=== PATIENT | female | born 1965 | race Two or more races ===

== ENCOUNTER 2024-09-12 15:00 | Outpatient (RCR) | payer MEDICAID, SELFPAY ==
--- NOTE | 2024-08-30 13:49 | PT.OIERPT ---
PT OP Initial Eval Patient Information Outpatient Physical Therapy Treatment Date: 08/30/24 Visit Reasons: Right hand pain Medical Diagnosis: M79.641 M18.11 Treatment Dx #1: R thumb pain Start of Care: 08/30/24 Date of Onset: 1 yr ago Smoking Status Smoking Status: Never smoker Initial Assessment Subjective: Pt is 59 yr old female who c/o R thumb pain x1 yr. She has received 2 injections which helped for a while and she uses a thumb splint brace at night which helps a little. She reports difficulty with gripping, grasping objects, carrying and moving the thumb. 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 Short Term and Expenditure Requisition Clerk Goals 1. Ind with HEP 2. Improved business intelligence director strength on R to 65 lbs 3. Pt will business intelligence director 3 lb objects and not drop for 2 minutes Treatment Plan ?1. Manual therapy ? 2. Therex ? 3. Modalities as indicated, moist heat, ice, estim Frequency and Duration: 1-2x a week for 3-4 visits. If improving continue to 12, if not reassess Certification Dates: 08/30/24 to 11/26/24 Procedure Charges OP PT Eval Mod Complex 30 minutes: Yes
--- NOTE | 2024-09-12 15:44 | PT.ODAYNRPT ---
PT Outpatient Daily Note OP Daily Note Outpatient Physical Therapy Treatment Date: 09/12/24 Visit Reasons: Right hand pain Subjective: Pt c/o R thumb pain. Objective: Please see flow sheet for ther ex list. Assessment: Pt demonstrates poor activity tolerance due to aggravating symptoms and pain response with light exercises assigned. Plan: Assess response to treatment. Length of Time (minutes) of Treatment: 30 Minutes Procedure Charges Therapeutic Exercise 30 minutes: Yes
== END 2024-09-13 23:59 | disposition home or self-care (01) ==
LOC: CPTX 15:00
DX: M79.644 Pain in right finger(s) (principal); M79.641 Pain in right hand; M18.11 Unilateral primary osteoarthritis of first carpometacarpal joint, right hand
CPT/HCPCS: 97110; 97162

== ENCOUNTER 2024-09-13 13:01 | Outpatient (AMB) | payer MEDICAID, SELFPAY ==
[2024-09-13 13:31] VITALS: BP 125/70; PULSE 69; RESP 19; TEMP 36; O2SAT 97; BMI 39.7
--- NOTE | 2024-09-13 13:31 | PD.ORTHCLVIS ---
Vital signs 09/13/24 13:31 Height 1.57 m Height Method Stated Weight 98.685 kg Weight Measurement Method Standing Scale BMI 39.7 BP 125/70 Blood Pressure Source Automatic Cuff Blood Pressure Location Left Upper Arm Position Sitting Respiration 19 Pulse 69 Pulse Source Monitor Temp 96.8 F Temp Source Temporal Artery Scan Pulse Oximetry (%) 97 Oxygen Delivery Method Room Air Med/Allergies Allergies & Medications Allergies NKA* Allergy (Uncoded 09/13/24 13:31) Medication Reconciliation Aspirin Ec * (ECOTRIN *) 81 mg PO QDAY ##0 01/07/16 [History Confirmed 09/13/24] Hydrocodone/Acetaminophen * (NORCO 10/325 *) 1 tab PO Q4H PRN #0 tabs 01/07/16 [History Confirmed 09/13/24] Levothyroxine * (SYNTHROID *) 100 mcg PO ACBR #0 tabs 01/07/16 [History Confirmed 09/13/24] Oxybutynin Chloride XL * (DITROPAN XL *) 10 mg PO BID ##0 01/07/16 [History Confirmed 09/13/24] benazepril 20 mg tablet (Lotensin) 20 mg PO QDAY #0 tabs 01/07/16 [History Confirmed 09/13/24] meloxicam 7.5 mg tablet 7.5 mg PO QDAY #45 tabs 09/13/24 [Rx] Exam Exam Breathing is nonlabored. Patient has a normal mood and affect. Bilateral extremities were evaluated and demonstrates sensation intact to light touch. Palpable pedal pulses are present. No significant edema is present. Bilateral hips were examined. The patient has no pain with log roll of the hips. Internal rotation to 30 degrees and external rotation to 30 degrees is painless. Negative FADIR. Left knee was examined today. The left knee is in reasonable alignment. Range of motion from 0-120 degrees. Knee is stable to varus and valgus as well as AP translation with <5mm. Patient has a negative McMurrays. There is no pain with patellofemoral compression and no crepitus noted. The knee is nontender to palpation. The right knee was also examined. The right knee is in varus alignment. Range of motion from 0-115 degrees. Knee is stable to varus and valgus as well as AP translation with <5mm. Patient has a negative McMurrays. There is no pain with patellofemoral compression and no crepitus noted. The knee is tender to palpation medially. Assessment and Plan Problem List (1) Arthritis of knee, right: Status: Acute Plan Patient is a 59-year-old female with right knee pain and right knee arthritis. I would like to get weightbearing x-rays to better evaluate the severity of the arthritis. I will start her on an anti-inflammatory for now. We can give her an injection should she need one. Office Procedures GNS Level of Care Nursing/Assessment Patient Status: Established Patient Nursing Assessment/Reassesment: Medication Reconciliation, Update PMH in EMR and Vital Signs Coordination of Care: Complex Care and Chronic Disease 1-5, Education Complex Pt/Fam, Consent,records obtained, informed consent, Results/Orders obtained and Staff clarify orders Established Patient Charge Established Patient Point Assignment: 95 Established Patient Point Charge: Level 3 (80-115) MA Intake Visit Data Collection New Patient or Established: New Patient (never been to [facility]) Reason for Visit:: KNEE PAIN Seen by Clinical Staff ONLY (RN/MA): No Verbal consent obtained for Telemed visit?: No Gas System Operator Required: No PCP or OBGYN visit in last 3 months: Yes Hx Now: No Do You Feel Safe at Home: Yes Authorities Contacted: N/A Questionairres Past Medical History Past Medical History Have you ever been diagnosed with any of the following: Subjective Immunization / Flu Flu Vaccine in the Last 12 Months: Yes Flu Vaccine Exclusion Criteria: Already Received History of Present Illness Chief complaint: Bilateral knee pain Luz is a pleasant 59-year-old female with right greater than left knee pain. The knee pain has been ongoing for more than a year. She is only tried [id number] ibuprofen. She is not any injections or physical therapy. The pain is on the medial aspect and has been increasing Review of Systems Review of Systems: All systems negative unless otherwise noted in HPI.
== END 2024-09-13 14:05 | disposition home or self-care (01) ==
PROVIDERS: PCP Physician Assistant; Referring Provider Physician Assistant; Supervising Provider Orthopaedic Surgery Adult Reconstructive Orthopaedic Surgery; Visit Provider Orthopaedic Surgery Adult Reconstructive Orthopaedic Surgery
DX: M17.11 Unilateral primary osteoarthritis, right knee (principal); M25.561 Pain in right knee
CPT/HCPCS: 99213; G0463

== ENCOUNTER → 2024-09-15 | Outpatient (CLI) | payer MEDICAID, SELFPAY ==
--- NOTE | 2024-09-15 10:07 | XR_ITS ---
Examination: Right knee 4 views TECHNIQUE: Standing AP oblique lateral axial right knee 4 views Exam date 9: September 15, 2024 1019 hours INDICATIONS: Right knee pain and stiffness beginning 2 years ago. FINDINGS: Moderate osteopenia Advanced narrowing medial joint space Significant osteoarthritis patellofemoral and lateral joint spaces No patellar dislocation IMPRESSION: Moderate to advanced tricompartment osteoarthritis
== END | disposition home or self-care (01) ==
LOC: CDIM 09:58
PROVIDERS: PCP Family Medicine; Referring Provider Orthopaedic Surgery Adult Reconstructive Orthopaedic Surgery; Visit Provider Orthopaedic Surgery Adult Reconstructive Orthopaedic Surgery
DX: M17.11 Unilateral primary osteoarthritis, right knee (principal)
CPT/HCPCS: 73564

== ENCOUNTER 2024-09-30 08:54 | Outpatient (AMB) | payer MEDICAID, SELFPAY ==
--- NOTE | 2024-09-30 09:32 | ORTHONT_ITS ---
Vital signs 09/30/24 09:33 Height 1.57 m Height Method Stated Weight 97.749 kg Weight Measurement Method Standing Scale BMI 39.6 BP 152/82 H Blood Pressure Source Automatic Cuff Blood Pressure Location Left Upper Arm Position Sitting Respiration 19 Pulse 65 Pulse Source Monitor Temp 96.1 F L Temp Source Temporal Artery Scan Pulse Oximetry (%) 94 L Oxygen Delivery Method Room Air Med/Allergies Allergies & Medications Allergies NKA* Allergy (Uncoded 09/30/24 09:33) Medication Reconciliation Aspirin Ec * (ECOTRIN *) 81 mg PO QDAY ##0 01/07/16 [History Confirmed 09/30/24] Hydrocodone/Acetaminophen * (NORCO 10/325 *) 1 tab PO Q4H PRN #0 tabs 01/07/16 [History Confirmed 09/30/24] Levothyroxine * (SYNTHROID *) 100 mcg PO ACBR #0 tabs 01/07/16 [History Confirmed 09/30/24] Oxybutynin Chloride XL * (DITROPAN XL *) 10 mg PO BID ##0 01/07/16 [History Confirmed 09/30/24] benazepril 20 mg tablet (Lotensin) 20 mg PO QDAY #0 tabs 01/07/16 [History Confirmed 09/30/24] meloxicam 7.5 mg tablet 7.5 mg PO QDAY #45 tabs 09/13/24 [Rx Confirmed 09/30/24] Exam Exam Breathing is nonlabored. Patient has a normal mood and affect. Bilateral extremities were evaluated and demonstrates sensation intact to light touch. Palpable pedal pulses are present. No significant edema is present. Bilateral hips were examined. The patient has no pain with log roll of the hips. Internal rotation to 30 degrees and external rotation to 30 degrees is painless. Negative FADIR. Left knee was examined today. The left knee is in reasonable alignment. Range of motion from 0-120 degrees. Knee is stable to varus and valgus as well as AP translation with <5mm. Patient has a negative McMurrays. There is no pain with patellofemoral compression and no crepitus noted. The knee is nontender to palpation. The right knee was also examined. The right knee is in varus alignment. Range of motion from 0-115 degrees. Knee is stable to varus and valgus as well as AP translation with <5mm. Patient has a negative McMurrays. There is no pain with patellofemoral compression and no crepitus noted. The knee is tender to palpation medially. X-rays demonstrate complete joint space obliteration medially with sclerosis and osteophytes. This is of the right knee from [place] [facility] Assessment and Plan Problem List (1) Arthritis of knee, right: Status: Acute Plan Patient is a 59-year-old female with right knee pain and right knee arthritis. She has significant arthritis medially. She would like a coritsone injection medially. Recommend knee cortisone injection as patient would like to proceed with conse rvative treatment at this time. The risks and benefits of the procedure were reviewed with the patient and patient gave verbal consent to continue with the procedure. Procedure: performed by Dr. Diaz Using sterile technique the Right knee was thoroughly prepped with alcohol, and approximately 1 cc of Kenalog 40 mg/mL and 4 cc of 1% lidocaine was injected without resistance into the medial tibial femoral joint space. The patient tolerated the procedure. Office Procedures GNS Level of Care Nursing/Assessment Patient Status: Established Patient Nursing Assessment/Reassesment: Medication Reconciliation, Update PMH in EMR and Vital Signs Coordination of Care: Complex Care and Chronic Disease 1-5, Education Complex Pt/Fam, Consent,records obtained, informed consent, Results/Orders obtained and Staff clarify orders Established Patient Charge Established Patient Point Assignment: 95 Established Patient Point Charge: EP Level 3 (80-115) Surgical Proc/IM SQ injection Major Surgical Procedure: Yes (KNEE INJECTION ) Medication Given Medication Given Medication Given: Yes Documented Dose Given: 4 Route: Infiitration Medication Given Medication Given Medication Given: Yes Documented Dose Given: 1 Route: Infiitration Office Meds Xylocaine 10 mg/mL (1 %) injection solution Performing Provider: South Diaz MD Performing Location: [facility] Administered by: South Diaz MD on 09/30/24 10:14 Dose Route Admin Location Dispensed Lot Number Expiration Date [facility] Centrifuge Separator Tender 20 mL Infiltration 20 mL [id number] [facility] triamcinolone acetonide 40 mg/mL suspension for injection Performing Provider: Sotuh Diaz MD Performing Location: [facility] Administered by: South Diaz MD on 09/30/24 10:14 Dose Route Admin Location Dispensed Lot Number Expiration Date [facility] Centrifuge Separator Tender 40 mg intra-articular KNEE INJECTION 1 mL [id number] 01/12/26 3406-2661-20 TEVA PARENTERAL MA Intake Visit Data Collection New Patient or Established: Established Patient (seen at [facility] within 3 years) Reason for Visit:: XRAY RESULTS Seen by Clinical Staff ONLY (RN/MA): No Manager Event Required: No PCP or OBGYN visit in last 3 months: Yes Hx Now: No Do You Feel Safe at Home: Yes Authorities Contacted: N/A Questionairres Past Medical History Past Medical History Have you ever been diagnosed with any of the following: Subjective Visit Visit for: follow up visit and x-rays (RESULTS) Immunization / Flu Flu Vaccine in the Last 12 Months: No Flu Vaccine Exclusion Criteria: No Exclusion Criteria History of Present Illness Chief complaint: Bilateral knee pain Luz is a pleasant 59-year-old female with right greater than left knee pain. The knee pain has been ongoing for more than a year. Pain is on the medial aspect of her knee. She would like an injection today. She reports some relief with the meloxicam Pain Pain level (0-10): 2 Pain duration: ON AND OFF Pain location: inside (medial) Pain quality: dull and aching Associated signs & symptoms: none Ambulatory data Ambulatory device: none Treatments Improvement with previous injections: No Improvement with PT: No Improvement with NSAIDS: no Review of Systems Review of Systems: All systems negative unless otherwise noted in HPI.
[2024-09-30 09:33] VITALS: BP 152/82; PULSE 65; RESP 19; TEMP 35.6; O2SAT 94; BMI 39.6
== END 2024-09-30 09:56 | disposition home or self-care (01) ==
LOC: HODSRG 08:54
PROVIDERS: PCP Physician Assistant; Referring Provider Physician Assistant; Supervising Provider Orthopaedic Surgery Adult Reconstructive Orthopaedic Surgery; Visit Provider Orthopaedic Surgery Adult Reconstructive Orthopaedic Surgery
DX: M17.11 Unilateral primary osteoarthritis, right knee (principal); M25.561 Pain in right knee
CPT/HCPCS: 20610; 99213; J3301; J3490; G0463

== ENCOUNTER 2024-10-12 09:30 | Outpatient (RCR) | payer MEDICAID, SELFPAY ==
--- NOTE | 2024-09-15 09:07 | PT.ODAYNRPT ---
PT Outpatient Daily Note OP Daily Note Outpatient Physical Therapy Treatment Date: 09/15/24 Visit Reasons: Right hand pain Subjective: Pt reports hand feels the same, still painful and sore. Objective: Please see flow sheet for ther ex list. Assessment: Added wrist 4 way, pt completed with minimal fatigue but no pain to report. Plan: Continue with POC. Length of Time (minutes) of Treatment: 30 Minutes Procedure Charges Therapeutic Exercise 30 minutes: Yes
--- NOTE | 2024-09-22 09:33 | PT.ODAYNRPT ---
PT Outpatient Daily Note OP Daily Note Outpatient Physical Therapy Treatment Date: 09/22/24 Visit Reasons: Right hand pain Subjective: Pt reports continued pain in R thumb, no changes at this time. Objective: Please see flow sheet for ther ex list. Assessment: Intervention progression delayed due to pt pain response. Plan: Continue with POC. Length of Time (minutes) of Treatment: 30 Minutes Procedure Charges Therapeutic Exercise 30 minutes: Yes
--- NOTE | 2024-09-28 09:32 | PT.ODAYNRPT ---
PT Outpatient Daily Note OP Daily Note Outpatient Physical Therapy Treatment Date: 09/28/24 Visit Reasons: Right hand pain Subjective: Pt reports hand has been feeling more sore these past few days. Objective: Please see flow sheet for ther ex list. Assessment: Pt continues to report pain, intervention progression slow. Plan: Continue with POC. Length of Time (minutes) of Treatment: 30 Minutes Procedure Charges Therapeutic Exercise 30 minutes: Yes
--- NOTE | 2024-10-05 10:27 | PT.ODAYNRPT ---
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
--- NOTE | 2024-10-07 13:27 | PT.ODAYNRPT ---
PT Outpatient Daily Note OP Daily Note Outpatient Physical Therapy Treatment Date: 10/07/24 Visit Reasons: Right hand pain Subjective: Pt reports R hand and thumb continue to be sore and painful. Objective: Please see flow sheet for ther ex list. Assessment: Delay in intervention progression due to pt pain response. Plan: Continue with POc. Length of Time (minutes) of Treatment: 30 Minutes Procedure Charges Therapeutic Exercise 30 minutes: Yes
== END 2024-10-14 23:59 | disposition home or self-care (01) ==
LOC: CPTX 09:30
DX: M79.641 Pain in right hand (principal); M18.11 Unilateral primary osteoarthritis of first carpometacarpal joint, right hand
CPT/HCPCS: 97110

== ENCOUNTER 2024-10-19 08:53 | Outpatient (RCR) | payer MEDICAID, SELFPAY ==
--- NOTE | 2024-10-19 10:03 | PT.ODS1RPT ---
PT OP Progress/Discharge Note Date of Service: 10/19/24 Progress Note/DC Note Progress Note/Discharge Note: DC Note Patient Information Visit Reasons: Rt hand pain Service Continue Service or Discharge: Discharge Discharge Date: 10/19/24 Status Subjective: Pain comes and goes, good days bad days Objective: Exercise Instructor strength: R: 55 lbs, L: 65 lbs Thumb AROM: Ext: 55 deg Flexion: 25 deg Assessment: Pt has attended / Rx visits with limited progress with therapy goals due to continued pain around 1st CMC consistent with OA. Pt scored higher on windows systems administrator strength 70 lbs last visit when she had less pain. Today she scored 55 lbs. On a good day pt has met therapy goals to windows systems administrator 3lb objects and not drop them and windows systems administrator strength to 65 lbs on R but pain returns. Plan: D/C with HEP. Procedure Charges Therapeutic Exercise 30 minutes: Yes
== END 2024-11-11 23:59 | disposition home or self-care (01) ==
LOC: CPTX 08:53
DX: M79.641 Pain in right hand (principal); M18.11 Unilateral primary osteoarthritis of first carpometacarpal joint, right hand
CPT/HCPCS: 97110

== ENCOUNTER 2024-12-29 08:28 | Outpatient (AMB) | payer MEDICAID, SELFPAY ==
[2024-12-29 09:10] VITALS: BP 136/79; PULSE 65; RESP 17; TEMP 36.1; O2SAT 97; BMI 36.8
--- NOTE | 2024-12-29 09:10 | PD.ORTHCLVIS ---
Vital signs 12/29/24 09:10 Height 1.57 m Height Method Stated Weight 90.775 kg Weight Measurement Method Standing Scale BMI 36.8 BP 136/79 H Blood Pressure Source Automatic Cuff Blood Pressure Location Left Upper Arm Position Sitting Respiration 17 Pulse 65 Pulse Source Monitor Temp 96.9 F Temp Source Temporal Artery Scan Pulse Oximetry (%) 97 Oxygen Delivery Method Room Air Med/Allergies Allergies & Medications Allergies NKA* Allergy (Uncoded 12/29/24 09:11) Medication Reconciliation Aspirin Ec * (ECOTRIN *) 81 mg PO QDAY ##0 01/07/16 [History Confirmed 12/29/24] Hydrocodone/Acetaminophen * (NORCO 10/325 *) 1 tab PO Q4H PRN #0 tabs 01/07/16 [History Confirmed 12/29/24] Levothyroxine * (SYNTHROID *) 100 mcg PO ACBR #0 tabs 01/07/16 [History Confirmed 12/29/24] Oxybutynin Chloride XL * (DITROPAN XL *) 10 mg PO BID ##0 01/07/16 [History Confirmed 12/29/24] benazepril 20 mg tablet (Lotensin) 20 mg PO QDAY #0 tabs 01/07/16 [History Confirmed 12/29/24] meloxicam 7.5 mg tablet 7.5 mg PO QDAY #45 tabs 09/13/24 [Rx Confirmed 12/29/24] Exam Exam Breathing is nonlabored. Patient has a normal mood and affect. Bilateral extremities were evaluated and demonstrates sensation intact to light touch. Palpable pedal pulses are present. No significant edema is present. Bilateral hips were examined. The patient has no pain with log roll of the hips. Internal rotation to 30 degrees and external rotation to 30 degrees is painless. Negative FADIR. Left knee was examined today. The left knee is in reasonable alignment. Range of motion from 0-120 degrees. Knee is stable to varus and valgus as well as AP translation with <5mm. Patient has a negative McMurrays. There is no pain with patellofemoral compression and no crepitus noted. The knee is nontender to palpation. The right knee was also examined. The right knee is in varus alignment. Range of motion from 0-115 degrees. Knee is stable to varus and valgus as well as AP translation with <5mm. Patient has a negative McMurrays. There is no pain with patellofemoral compression and no crepitus noted. The knee is tender to palpation medially. X-rays demonstrate complete joint space obliteration medially with sclerosis and osteophytes. This is of the right knee from [place] [facility] Assessment and Plan Problem List (1) Arthritis of knee, right: Status: Acute Plan Patient is a 59-year-old female with right knee pain and right knee arthritis. She has significant arthritis medially. She would like a coritsone injection medially. The last injection has worked for several months Recommend knee cortisone injection as patient would like to proceed with conservative treatment at this time. The risks and benefits of the procedure were reviewed with the patient and patient gave verbal consent to continue with the procedure. Procedure: performed by Dr. Diaz Using sterile technique the Right knee was thoroughly prepped with alcohol, and approximately 1 cc of Kenalog 40 mg/mL and 4 cc of 1% lidocaine was injected without resistance into the medial tibial femoral joint space. The patient tolerated the procedure. Office Procedures GNS Level of Care Nursing/Assessment Patient Status: Established Patient Nursing Assessment/Reassesment: Medication Reconciliation, Update PMH in EMR and Vital Signs Coordination of Care: Complex Care and Chronic Disease 1-5, Education Complex Pt/Fam, Consent,records obtained, informed consent, Results/Orders obtained and Staff clarify orders Established Patient Charge Established Patient Point Assignment: 95 Established Patient Point Charge: EP Level 3 (80-115) Surgical Proc/IM SQ injection Major Surgical Procedure: Yes (KNEE INJECTION ) Medication Given Medication Given Medication Given: Yes Documented Dose Given: 4 Route: Infiitration Medication Given Medication Given Medication Given: Yes Documented Dose Given: 1 Route: Infiitration Office Meds Xylocaine 10 mg/mL (1 %) injection solution Performing Provider: South Diaz MD Performing Location: [facility] Administered by: oSuth Diaz MD on 12/29/24 09:36 Dose Route Admin Location Dispensed Lot Number Expiration Date [facility] Core Composer Feeder 20 mL Infiltration 20 mL [id number] [employer] triamcinolone acetonide 40 mg/mL suspension for injection Performing Provider: South Diaz MD Performing Location: [facility] Administered by: South Diaz MD on 12/29/24 09:36 Dose Route Admin Location Dispensed Lot Number Expiration Date [facility] Core Composer Feeder 40 mg intra-articular KNEE 1 mL [id number] 06/14/26 9309-3146-53 TEVA PARENTERAL MA Intake Visit Data Collection New Patient or Established: Established Patient (seen at [facility] within 3 years) Reason for Visit:: FU RT KNEE INJECTION Seen by Clinical Staff ONLY (RN/MA): No Fireman Helper Required: No PCP or OBGYN visit in last 3 months: Yes Hx Now: No Do You Feel Safe at Home: Yes Authorities Contacted: N/A Questionairres Past Medical History Past Medical History Have you ever been diagnosed with any of the following: Respiratory Problems Smoking: No Smoking Cessation Counseling: No Smoking Exposure: No Tobacco Use: No Subjective Visit Visit for: follow up visit and knee (RIGHT KNEE ) Immunization / Flu Flu Vaccine in the Last 12 Months: No Flu Vaccine Exclusion Criteria: Refused by Patient History of Present Illness Chief complaint: Bilateral knee pain Luz is a pleasant 59-year-old female with right greater than left knee pain. The knee pain has been ongoing for more than a year. Pain is on the medial aspect of her knee. She would like an injection today. She reports some relief with the meloxicam. Personal History Red flag PMH: none Pain Pain level (0-10): 7 Pain duration: ON AND OFF Pain location: anterior Pain quality: sharp Pain timing: night and increases with activity Associated signs & symptoms: stiffness Ambulatory data Ambulatory device: none Walking distance (minutes): 10 Treatments Number of previous injections: 1 Improvement with previous injections: Yes Number of Physical Therapy sessions: 0 Improvement with PT: No Improvement with NSAIDS: n/a Review of Systems Review of Systems: All systems negative unless otherwise noted in HPI.
== END 2024-12-29 09:56 | disposition home or self-care (01) ==
LOC: HODSRG 08:28
PROVIDERS: PCP Family Medicine; Referring Provider Family Medicine; Supervising Provider Orthopaedic Surgery Adult Reconstructive Orthopaedic Surgery; Visit Provider Orthopaedic Surgery Adult Reconstructive Orthopaedic Surgery
DX: M17.11 Unilateral primary osteoarthritis, right knee (principal); M25.561 Pain in right knee
CPT/HCPCS: 20610; 99213; J3301; J3490; G0463

== ENCOUNTER 2025-05-04 08:33 | Outpatient (AMB) | payer MEDICAID, SELFPAY ==
[2025-05-04 08:44] VITALS: BP 147/82; PULSE 58; RESP 18; TEMP 36.3; O2SAT 96; BMI 32.0
--- NOTE | 2025-05-04 08:44 | ORTHONT_ITS ---
Vital signs 05/04/25 08:44 Height 1.57 m Height Method Measured Weight 79.01 kg Weight Measurement Method Standing Scale BMI 32.0 BP 147/82 H Blood Pressure Source Automatic Cuff Blood Pressure Location Left Upper Arm Position Sitting Respiration 18 Pulse 58 L Pulse Source Monitor Temp 97.3 F Temp Source Temporal Artery Scan Pulse Oximetry (%) 96 Oxygen Delivery Method Room Air Med/Allergies Allergies & Medications Allergies NKA* Allergy (Uncoded 05/04/25 08:45) Medication Reconciliation Aspirin Ec * (ECOTRIN *) 81 mg PO QDAY ##0 01/07/16 [History Confirmed 05/04/25] Hydrocodone/Acetaminophen * (NORCO 10/325 *) 1 tab PO Q4H PRN #0 tabs 01/07/16 [History Confirmed 05/04/25] Levothyroxine * (SYNTHROID *) 100 mcg PO ACBR #0 tabs 01/07/16 [History Confirmed 05/04/25] Oxybutynin Chloride XL * (DITROPAN XL *) 10 mg PO BID ##0 01/07/16 [History Confirmed 05/04/25] benazepril 20 mg tablet (Lotensin) 20 mg PO QDAY #0 tabs 01/07/16 [History Confirmed 05/04/25] meloxicam 7.5 mg tablet 7.5 mg PO QDAY #45 tabs 09/13/24 [Rx Confirmed 05/04/25] Exam Exam Breathing is nonlabored. Patient has a normal mood and affect. Bilateral extremities were evaluated and demonstrates sensation intact to light touch. Palpable pedal pulses are present. No significant edema is present. Bilateral hips were examined. The patient has no pain with log roll of the hips. Internal rotation to 30 degrees and external rotation to 30 degrees is painless. Negative FADIR. Left knee was examined today. The left knee is in reasonable alignment. Range of motion from 0-120 degrees. Knee is stable to varus and valgus as well as AP translation with <5mm. Patient has a negative Mc[place]. There is no pain with patellofemoral compression and no crepitus noted. The knee is nontender to palpation. The right knee was also examined. The right knee is in varus alignment. Range of motion from 0-115 degrees. Knee is stable to varus and valgus as well as AP translation with <5mm. Patient has a negative [place]. There is no pain with patellofemoral compression and no crepitus noted. The knee is tender to palpation medially. X-rays demonstrate complete joint space obliteration medially with sclerosis and osteophytes. This is of the right knee from [facility] Assessment and Plan Problem List (1) Arthritis of knee, right: Status: Acute Plan Patient is a 59-year-old female with right knee pain and right knee arthritis. She has significant arthritis medially. She would like a coritsone injection medially. The last injection has worked for several months Recommend knee cortisone injection as patient would like to proceed with conservative treatment at this time. The risks and benefits of the procedure were reviewed with the patient and patient gave verbal consent to continue with the procedure. Procedure: performed by Dr. Diaz Using sterile technique the Right knee was thoroughly prepped with alcohol, and approximately 1 cc of Depo-Medrol 80mg/mL and 4 cc of 0.2% ropivacaine was injected without resistance into the medial tibial femoral joint space. The patient tolerated the procedure. Office Procedures GNS Level of Care Nursing/Assessment Patient Status: Established Patient Nursing Assessment/Reassesment: Medication Reconciliation, Orthostatic Vitals, Update PMH in EMR and Vital Signs Coordination of Care: Complex Care and Chronic Disease 1-5, Education Complex Pt/Fam, Consent,records obtained, informed consent, Lab and Imaging orders, Results/Orders obtained and Staff clarify orders Established Patient Charge Established Patient Point Assignment: 120 Established Patient Point Charge: EP Level 3 (80-115) Surgical Proc/IM SQ injection Major Surgical Procedure: Yes (KNEE INJECTION) Medication Given Medication Given Medication Given: Yes Documented Dose Given: 1 Route: Infiitration Medication Given Medication Given Medication Given: Yes Documented Dose Given: 4 Route: Infiitration Office Meds methylprednisolone acetate 80 mg/mL suspension for injection Performing Provider: South Diaz MD Performing Location: [facility] Administered by: South Diaz MD on 05/04/25 09:16 Dose Route Admin Location Dispensed Lot Number Expiration Date [facility] Boarding Room Fixer 80 mg intra-articular KNEE 1 mL [id number] 02/11/27 [address]-0 A [facility] ropivacaine (PF) 2 mg/mL (0.2 %) injection solution Performing Provider: South Diaz MD Performing Location: [facility] Administered by: South Diaz MD on 05/04/25 09:16 Dose Route Admin Location Dispensed Lot Number Expiration Date [facility] Boarding Room Fixer 20 mL Infiltration KNEE 20 mL [id number] 08/13/26 36998-733-36 [facility] Intake Visit Data Collection New Patient or Established: Established Patient (seen at [facility] within 3 years) Reason for Visit:: FU RT KNEE INJECTION Seen by Clinical Staff ONLY (RN/MA): No Lamination Technician Required: No PCP or OBGYN visit in last 3 months: Yes Hx Now: No Do You Feel Safe at Home: Yes Authorities Contacted: N/A Questionairres Past Medical History Past Medical History Have you ever been diagnosed with any of the following: Respiratory Problems Smoking: No Smoking Cessation Counseling: No Smoking Exposure: No Tobacco Use: No Subjective Visit Visit for: follow up visit and knee (RIGHT KNEE ) Immunization / Flu Flu Vaccine in the Last 12 Months: No Flu Vaccine Exclusion Criteria: Refused by Patient History of Present Illness Chief complaint: Bilateral knee pain Luz is a pleasant 59-year-old female with right greater than left knee pain. The knee pain has been ongoing for more than a year. Pain is on the medial aspect of her knee. She would like an injection today. She reports some relief with the meloxicam. The last injection lasted for 3 months Personal History Red flag PMH: none Pain Pain level (0-10): 7 Pain duration: ON AND OFF Pain location: anterior Pain quality: sharp Pain timing: night and increases with activity Associated signs & symptoms: stiffness Ambulatory data Ambulatory device: none Walking distance (minutes): 10 Treatments Number of previous injections: 2 Improvement with previous injections: Yes Number of Physical Therapy sessions: 0 Improvement with PT: No Improvement with NSAIDS: n/a Review of Systems Review of Systems: All systems negative unless otherwise noted in HPI.
== END 2025-05-04 08:59 | disposition home or self-care (01) ==
LOC: HODSRG 08:33
PROVIDERS: Supervising Provider Orthopaedic Surgery Adult Reconstructive Orthopaedic Surgery; Visit Provider Orthopaedic Surgery Adult Reconstructive Orthopaedic Surgery
DX: M17.11 Unilateral primary osteoarthritis, right knee (principal); M25.561 Pain in right knee; M25.562 Pain in left knee
CPT/HCPCS: 20610; 99213; J1010; J2795; G0463

== ENCOUNTER 2025-05-07 10:57 | Observation (INO) | payer MEDICAID, SELFPAY ==
[2025-05-07 10:58] VITALS: BMI 32.0
[2025-05-07 11:30] VITALS: BP 144/82; PULSE 89; RESP 19; TEMP 37.7; O2SAT 97
--- NOTE | 2025-05-07 11:56 | XR_ITS ---
Examination: CT abdomen with intravenous contrast CT pelvis with intravenous contrast 2-D coronal reconstructions 2-D sagittal reconstructions Date and time of exam: May 07, 2025, 1434 hrs. Indications:. No abdominal pain beginning last week. CTDI: vol (mGy) 10. DLP: (mGycm) 517. Technique: Multiple axial sections of the abdomen and pelvis have been obtained. 64 slice high-resolution scanner used. 3 mm axial sections have been obtained, post intravenous injection 60 cc [id number]-[id number]. 2-D sagittal, coronal reconstructions obtained. Low dose protocols were performed. One or more of the following dose reduction techniques were used; automated exposure control, adjustment of the mA and/or KV according to patient size, use of iterative reconstruction technique. Findings: No focal liver or splenic lesions Absent gallbladder Edema surrounding the pancreas. No renal or ureteral calculi, no hydronephrosis Upper abdominal wall 10 mm and 15 mm fat-containing hernia defects Umbilical hernia defect containing bowel with mildly fluid distended small bowel suspicious for early incarceration Septated large complex cystic mass with mural thickening, this cystic mass measures at least 14 cm and the mural solid component 2.3 cm Contracted urinary bladder Calcification in the left adnexal region 19 mm Moderate disc narrowing Lumbar levels Impression: Early acute pancreatitis Umbilical hernia defect containing small bowel, suspicious for early incarceration of the small bowel, consider Gastrografin small bowel series follow-up 14 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
--- NOTE | 2025-05-07 11:58 | PD.EDABDPN ---
ED Abdominal Pain RME/HPI General Chief Complaint: Abdominal Pain Stated complaint: LOWER ABD PAIN FOR 3 DAYS Time seen by provider: 05/07/25 11:54 Arrival date/time: 05/07/25 10:57 Source: patient Mode of arrival: ambulatory Limitations: no limitations RME / HPI RME / HPI narrative: 59-year-old female with a history of hypertension, overactive bladder, and hypothyroidism is here today with a 2-day history of lower abdominal pain, nausea, vomiting. She has no changes in bowel movements. She has urinary frequency that is her baseline without dysuria. She denies any fevers or chills. She has no chest pain. She states the pain is described as a stabbing and constant pain. She has no other acute complaints or concerns. She does have a remote history of hernia repair that was done here 25+ years ago. Related Data Home Medications ?Medication ?Instructions ?Recorded ?Confirmed Aspirin Ec * (ECOTRIN *) 81 mg PO QDAY ##0 01/07/16 05/04/25 Hydrocodone/Acetaminophen * (NORCO 1 tab PO Q4H PRN #0 tabs 01/07/16 05/04/25 10/325 *) Levothyroxine * (SYNTHROID *) 100 mcg PO ACBR #0 tabs 01/07/16 05/04/25 Oxybutynin Chloride XL * (DITROPAN 10 mg PO BID ##0 01/07/16 05/04/25 XL *) benazepril 20 mg tablet (Lotensin) 20 mg PO QDAY #0 tabs 01/07/16 05/04/25 Previous Rx's ?Medication ?Instructions ?Recorded meloxicam 7.5 mg tablet 7.5 mg PO QDAY #45 tabs 09/13/24 Allergies Allergy/AdvReac Type Severity Reaction Status Date / Time No Known Allergies Allergy Verified 05/07/25 10:59 Review of Systems Review of Systems Systems Reviewed: All systems reviewed, normal except as documented ED Exam General Limitations: Present no limitations General appearance: Present alert and in no apparent distress Head Head exam: Present atraumatic Eye Eye exam: Present normal appearance, PERRL and EOMI ENT ENT exam: Present normal exam, normal oropharynx and mucous membranes moist Neck Neck exam: Present normal inspection, full ROM and trachea midline Chest Chest inspection: Present normal inspection and symmetric chest wall rise Respiratory Respiratory exam: Present normal lung sounds bilaterally Cardiovascular Cardiovascular exam: Present regular rate, normal rhythm and normal heart sounds Abdominal Exam Abdominal exam: Present soft; Absent distention, tenderness, guarding or rebound Extremities Exam Extremities exam: Present normal inspection and full ROM Back Exam Back exam: Present normal inspection and full ROM Neurological Exam Neurological exam: Present alert, oriented X3 and CN II-XII intact Psychiatric Psychiatric exam: Present normal affect and normal mood Skin Skin exam: Present warm, dry, intact and normal color Course Quality Measures none Orders Category Date Time Status CT Screening NOW Care 05/07/25 11:[address] abdomen pelvis w con Stat Exams 05/07/25 11:56 Completed US transvaginal Stat Exams 05/07/25 16:10 Completed XR abdomen 1V Urgent Exams 05/07/25 22:30 Completed XR abdomen 1V Urgent Exams 05/08/25 02:30 Ordered XR abdomen 1V Urgent Exams 05/08/25 07:30 Ordered XR small bowel single contrast Stat Exams 05/07/25 16:14 Completed CBC Stat Lab 05/07/25 12:06 Completed CMP [Comprehensive Metabolic Panel] Stat Lab 05/07/25 12:06 Completed Lactic Acid [Lactate (Lactic Acid)] Stat Lab 05/07/25 12:06 Completed Lipase Stat Lab 05/07/25 12:06 Completed UA, C/S IF [Urinalysis, C/S if Indicated] Stat Lab 05/07/25 12:10 Completed Urine Culture Stat Lab 05/07/25 12:10 Received HYDROcodone*/APAP 5/325 [[place] 5/325] Med 05/07/25 11:56 Discontinued 1 tab PO X1 ONE HYDROcodone*/APAP 5/325 [[place] 5/325] Med 05/07/25 22:18 Discontinued 1 tab PO X1 ONE Ondansetron Odt [Zofran Odt] Med 05/07/25 11:56 Discontinued 4 mg PO X1 ONE cephALEXin [Keflex] Med 05/07/25 19:58 Discontinued 500 mg PO X1 ONE Vital Signs Vital signs: Vital Signs Temperature 99.9 F 05/07/25 11:30 Pulse Rate 89 05/07/25 11:30 Respiratory Rate 19 05/07/25 11:30 Blood Pressure 144/82 H 05/07/25 11:30 Pulse Oximetry (%) 97 05/07/25 11:30 Oxygen Delivery Method Room Air 05/07/25 11:30 Abdominal Pain MDM MDM Narrative MDM Narrative:: 59-year-old female with a history of hypertension, overactive bladder, and hypothyroidism is here today with a 2-day history of lower abdominal pain, nausea, vomiting. She has no changes in bowel movements. She has urinary frequency that is her baseline without dysuria. She denies any fevers or chills. She has no chest pain. She states the pain is described as a stabbing and constant pain. She has no other acute complaints or concerns. She does have a remote history of hernia repair that was done here 25+ years ago. On exam, patient is nontoxic-appearing in no visible signs distress. Vital signs are stable. Her abdomen exam is benign and reassuring. Workup was obtained. Patient has a mild leukocytosis at 13.1 thousand. Lactic acid is unremarkable. There is no metabolic derangement. CT reveals a ventral hernia. There is question possible early incarceration. Gastrografin series were recommended by the radiologist. There is also a complex cystic mass in the pelvis that was incidentally found.. Transvaginal ultrasound was recommended by radiologist which is obtained, his report of the ultrasound on reveals similar findings. Patient received an dose of [place] initially was seemed to help. After her workup she requested an additional dose which provided was also noted to the patient in the UTI, as there were 13 leukocytes per field in her urine. She is given a dose of Keflex for this. Our [facility] hospitalist team was contacted regarding the above findings to consider admission and further work up. Patient data External records reviewed:: None Clinical information provided by:: patient Social determinants that could affect healthcare access:: none Patient has the following chronic illnesses:: Hypertension, hypothyroidism How is presenting disease/condition affected by chronic disease/condition?: uneffected by Evaluation data The following diagnostics were reviewed and interpreted by me:: lab results and radiology exam(s) Lab and/or radiology exams considered but not ordered:: n/a Interpretation Summary: Questionable incarcerated ventral hernia Medications / Prescriptions Medications or Prescriptions considered but not ordered:: n/a Medication administrations:: Medication Administration History Discontinued Medications Hydrocodone Bitart/Acetaminophen (Hydrocodone/Apap 5/325 Tablet) 1 tab PO X1 ONE Stop: 05/07/25 11:57 Last Admin: 05/07/25 13:03 Dose: 1 tab Documented By: Hydrocodone Bitart/Acetaminophen (Hydrocodone/Apap 5/325 Tablet) 1 tab PO X1 ONE Stop: 05/07/25 22:19 Last Admin: 05/07/25 23:05 Dose: 1 tab Documented By: JESSICA Cephalexin HCl (Cephalexin 250 Mg Capsule) 500 mg PO X1 ONE Stop: 05/07/25 19:59 Last Admin: 05/07/25 21:59 Dose: 500 mg Documented By: Ondansetron HCl (Ondansetron Odt 4 Mg Tabrap) 4 mg PO X1 ONE; Protocol Stop: 05/07/25 11:57 Last Admin: 05/07/25 13:02 Dose: 4 mg Documented By: see above Consultations Consultation(s) initiated? (list below): No Diagnosis Differential diagnosis abdominal pain: abdominal pain, calculus of kidney, constipation and small bowel obstruction Most likely diagnosis given after review of the tests above:: Ventral hernia Admission Indicated Admission indicated?: indicated Admission Request Was there a request for admission?: Yes Admission Attestation Admission request attestation: Discussed case with [] from Hospitalist service regarding admission. Discussed patients ED course, exam findings, labs, and radiology results. The Hospitalist [agrees,declines] to accept the patient for admission. Disposition Plan Disposition Plan: Admit Discharge Plan Plan Patient Disposition: Admit Acute Care w/in Hospital Patient condition on transfer: Stable Prescriptions/Referrals Prescriptions/Med Rec: No Action meloxicam 7.5 mg tablet 7.5 mg PO QDAY Qty: 45 3RF Aspirin Ec * (ECOTRIN *) 81 MG TABLET.DR 81 mg PO QDAY Qty: 0 benazepril [Lotensin] 20 MG tablet 20 mg PO QDAY Qty: 0 Hydrocodone/Acetaminophen * (NORCO 10/325 *) 1 TAB tablet 1 tab PO Q4H PRNQty: 0 Levothyroxine * (SYNTHROID *) 100 MCG tablet 100 mcg PO ACBR Qty: 0 Oxybutynin Chloride XL * (DITROPAN XL *) 10 MG TABLET, EXTENDED RELEASE 10 mg PO BID Qty: 0 Referrals: Yue Garcia PA-C [Primary Care Provider] - In 1 week Problem List Clinical Impression: Abdominal pain Patient/Caregiver Discharge Instructions Print Language: Gambian Stand Alone Forms: [facility] Info., Patient Portal Info Letter
[2025-05-07 12:14] LABS: Lactate (Lactic Acid) 0.9 mMol/L (0.4-2.0)
[2025-05-07 12:16] LABS: Basophils # (Auto) 0.1 Thou/mm3 (0.0-0.2); Basophils % (Auto) 0 % (0-2.5); Eosinophils # (Auto) 0.0 Thou/mm3 (0.0-0.5); Eosinophils % (Auto) 0 % (0-10); Hematocrit 41.5 % (36.0-46.0); Hemoglobin 13.7 g/dL (12.0-16.0); Immature Granulocytes Auto 0.04 Thou/mm3 (0.00-0.00); Lymphocytes # (Auto) 1.4 Thou/mm3 (1.0-4.8); Lymphocytes % (Auto) 11 % (10-50); Mean Corpuscular HGB Conc 33.0 g/dl (31.0-37.0); Mean Corpuscular Hemoglobin 30.9 pg (25.0-35.0); Mean Corpuscular Volume 94 fL (80-100); Monocytes # (Auto) 1.1 Thou/mm3 (0.0-0.8); Monocytes % (Auto) 8 % (0-12); Neutrophils # (Auto) 10.5 Thou/mm3 (1.8-7.7); Neutrophils % (Auto) 80 % (37-80); Nucleated Red Blood Cell # 0.00 Thou/mm3 (0.00-0.00); Nucleated Red Blood Cell % 0 /100 WBC (0); Platelet Count 265 Thou/mm3 (140-440); RDW Standard Deviation 43.5 fL (36.4-46.3); Red Blood Count 4.43 Miln/mm3 (4.00-5.20); White Blood Count 13.1 Thou/mm3 (3.6-11.0)
[2025-05-07 12:30] LABS: Collection Type, Urine Voided
[2025-05-07 12:46] LABS: Alanine Aminotransferase 10 U/L (10-49); Albumin, Serum 4.7 gm/dL (3.4-4.8); Albumin/Globulin Ratio 1.8 (1.2-2.2); Alkaline Phosphatase 64 U/L (46-116); Anion Gap 10 (7-16); Aspartate Amino Transferase 22 U/L (0-34); BUN/Creatinine Ratio 14 Ratio (12-20); Bilirubin,Total 0.8 mg/dL (0.3-1.2); Blood Urea Nitrogen 10 mg/dL (9-23); Calcium 10.4 mg/dL (8.3-10.6); Calcium (Corrected) 10.4 mg/dL (8.5-10.1); Carbon Dioxide 27.4 mMol/L (20.0-31.0); Chloride 104 mMol/L (98-107); Creatinine (Component) 0.7 mg/dL (0.6-1.3); Estimated Creatinine Clearance 82.4 mL/min (>60); Globulin 2.6 gm/dL (2.3-3.5); Glucose 99 mg/dL (74-106); Lipase 28 U/L (12-53); Osmolality,Calculated 280 (275-295); Potassium 4.4 mMol/L (3.4-5.1); Sodium 141 mMol/L (136-145); Total Protein 7.3 gm/dL (5.7-8.2); eGFR > 60 See Note
[2025-05-07] MEDS: ONDANSETRON ODT 4 MG TABRAP PO (13:02)
[2025-05-07] MEDS: HYDROcodone/APAP 5/325 TABLET 1 TAB PO ×2 (13:03→23:05)
[2025-05-07 13:11] LABS: Bilirubin,Urine Negative (Negative); Blood,Urine Negative (Negative); Clarity,Urine Clear (Clear/Hazy); Color,Urine Yellow (Lt Yel-Yel); Glucose, Urine Negative (Negative); Ketones,Urine Negative (Negative); Leukocyte Esterase,Urine Positive (Negative); Nitrite,Urine Negative (Negative); PH,Urine 7.0 (5.0-7.0); Protein,Urine Negative (Neg - Trace); RBC,Urine 2 /hpf (0-3); Specific Gravity,Urine 1.022 (1.001-1.035); Squamous Epithelial Cell,Urine 2 /hpf (0-5); Urobilinogen,Urine Negative mg/dL (0.0-1.0); WBC,Urine 13 /hpf (0-5)
[2025-05-07 13:15] LABS: Culture Indicated,Urine Yes
[2025-05-07 16:00] VITALS: BP 129/81; PULSE 76; RESP 19; O2SAT 97
--- NOTE | 2025-05-07 16:10 | XR_ITS ---
Examination: Transvaginal ultrasound of the pelvis, complete Technique: Transvaginal sonographic images pelvis performed using boss scale imaging Exam date and time: May 07, 2025, 1858 hours INDICATIONS: Pelvic pain beginning 2 days ago FINDINGS: Uterus 5.9 cm endometrial stripe poorly visualized No uterine mass Right ovary obscured by bowel gas Complex cystic mass with internal echoes and septation 12.0 x 11.0 x 10.3 cm in the right adnexal region And appropriate scattered by bowel gas IMPRESSION: Large complex septated cystic mass with internal echoes, 12 x 11 x 10.3 cm Differential would include cystadenocarcinoma Recommend MRI pelvis follow-up brain postcontrast.
--- NOTE | 2025-05-07 16:14 | XR_ITS ---
Examination: Small bowel series AP abdomen 4 views Date and time: May 07, 2025 1927 hours INDICATIONS: Abdominal pain and distention this week, umbilical hernia containing small bowel, early small bowel obstruction pattern on CT abdomen and pelvis study today TECHNIQUE AND FINDINGS: Oral administration 120 cc Gastrografin, abdomen films 1 minute 30 minutes 1 hour 2 hours obtained Contrast in mildly distended small bowel loops IMPRESSION: Mildly contrast distended small bowel loops Recommend follow-up abdomen films 10:00 PM 2:00 AM 7:00 AM
--- NOTE | 2025-05-07 22:30 | XR_ITS ---
Examination: Abdomen AP single view Technique: AP portable supine abdomen, single view Exam date and time: May 07, 2025 1025 hours INDICATIONS: Abdominal pain and distention today, small bowel obstruction pattern and CT abdomen and pelvis study 1434 hours today, 3 hour delayed film post small bowel series FINDINGS: Contrast now present in the right colon IMPRESSION: Negative for small bowel obstruction No further films are needed
[2025-05-07 22:50] VITALS: BP 129/90; PULSE 100; RESP 19; TEMP 37.7; O2SAT 96
[2025-05-07 22:56] VITALS: BP 137/63; PULSE 95; RESP 18; TEMP 37.7; O2SAT 94
--- NOTE | 2025-05-07 23:27 | ESHP_ITS ---
Documentation for date of: 05/07/25 [facility] History of Present Illness Chief complaint: Lower abdominal pain and nausea for 2 days. History of present illness: 59-year-old female with a history of hypertension, hypothyroidism, overactive bladder, and pre-diabetes who presents with 2 days of severe, stabbing lower abdominal pain that began Thursday night. The pain has been constant, rated as 10/10, and not relieved by rest or position. She also reports associated nausea and dry heaving but no denise emesis. She continues to pass stool and flatus, though somewhat decreased compared to baseline. She denies fever, chills, chest pain, dysuria, hematuria, vaginal bleeding, or recent illness. She has a remote history of hernia repair over 25 years ago. She was evaluated in the ED, where labs showed mild leukocytosis (WBC 13.1) with otherwise reassuring electrolytes, renal, hepatic panel, and normal lipase. CT abdomen/pelvis showed an umbilical hernia containing small bowel without obstruction, ?early pancreatitis? 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 This was confirmed on transvaginal ultrasound. A Gastrografin series was initiated and the 10 PM abdominal film was negative for obstruction, so no further series required. She remains hemodynamically stable with benign abdominal exam. Given the severity of pain and concerning adnexal mass, she is being admitted for further management. Review of Systems * General: No fever, chills, night sweats. * GI: Severe abdominal pain, nausea/dry heaving, decreased flatus. No vomiting, melena, hematochezia. * : Baseline urinary frequency, no dysuria or hematuria. * LOGISTICS ASSISTANT: No vaginal bleeding or discharge. * CV/Resp: No chest pain, palpitations, or shortness of breath. * Other: No recent weight loss apart from mild decrease attributed to medication. Past Medical History * Hypertension * Hypothyroidism * Overactive bladder * Pre-diabetes Past Surgical History * Umbilical hernia repair (>25 years ago) * Cholecystectomy * Shoulder surgery * Trigger finger surgery Medications * Levothyroxine 100 mcg daily (recent dose adjustment) * Benazepril 40 Mg * Oxybutynin 10 mg daily * Weekly GLP-1 agonist injection (last dose Thursday) Allergies * NKDA Family History * Non-contributory (no known gynecologic or GI malignancy reported). Social History * Lives with family, primary caregiver for grandchildren. * Denies tobacco, alcohol, and recreational drug use. Exam Vital Signs Temp Pulse Resp BP Pulse Ox O2 Del Method 99.9 F 95 18 137/63 H 94 L Room Air 05/07/25 22:56 05/07/25 22:56 05/07/25 22:56 05/07/25 22:56 05/07/25 22:56 05/07/25 22:56 Narrative Exam General: In mild discomfort HEENT: No scleral icterus. Cardiac: Regular, no murmurs. Lungs: Clear to auscultation bilaterally. Abdomen: Soft with focal tenderness to lower abdomen/pelvis. Palpable fullness/mass appreciated, uncertain if arising from bladder though does not feel like bladder; no rebound/guarding, no peritoneal signs. : No CVA tenderness. Extremities: No edema. Neuro: Alert and oriented, non-focal. Skin: No rashes, no jaundice. Results: Labs 05/07/25 12:06 05/07/25 12:06 Labs: Short CBC 05/07/25 Range/Units 12:06 WBC 13.1 H (3.6-11.0) Thou/mm3 Hgb 13.7 (12.0-16.0) g/dL Hct 41.5 (36.0-46.0) % Plt Count 265 (140-440) Thou/mm3 BMP 05/07/25 12:06 Sodium 141 Potassium 4.4 Chloride 104 Carbon Dioxide 27.4 BUN 10 Creatinine 0.7 Glucose 99 Calcium 10.4 Liver Function 05/07/25 Range/Units 12:06 Total Bilirubin 0.8 (0.3-1.2) mg/dL AST 22 (0-34) U/L ALT 10 (10-49) U/L Alkaline Phosphatase 64 (46-116) U/L Albumin 4.7 (3.4-4.8) gm/dL Urine 05/07/25 Range/Units 12:10 Urine Color Yellow (Lt Yel-Yel) Urine Clarity Clear (Clear/Hazy) Urine pH 7.0 (5.0-7.0) Ur Specific [place] 1.022 (1.001-1.035) Urine Protein Negative (Neg - Trace) Urine Glucose (UA) Negative (Negative) Quality Measures Quality Measures VTE prophylaxis Medications Home Medications and Allergies Home Medications ?Medication ?Instructions ?Recorded ?Confirmed ?Type Levothyroxine * (SYNTHROID *) 100 mcg PO ACBR #0 tabs 01/07/16 05/08/25 History Oxybutynin Chloride XL * (DITROPAN 10 mg PO DAILY ##0 01/07/16 05/08/25 History XL *) benazepril 20 mg tablet (Lotensin) 40 mg PO QDAY #0 ta bs 01/07/16 05/08/25 History cetirizine 10 mg tablet (24Hour 10 mg PO QDAY 05/08/25 05/08/25 History Allergy) cholecalciferol (vitamin D3) 50 50 mcg PO DAILY 05/08/25 History mcg (2,000 unit) capsule semaglutide (weight loss) 0.5 1 mg subcut Q7D 05/08/25 05/08/25 History mg/0.5 mL subcutaneous pen injector (Wegovy) Allergies Allergy/AdvReac Type Severity Reaction Status Date / Time No Known Allergies Allergy Verified 05/07/25 10:59 Visit Medications Acetaminophen (Acetaminophen 325 Mg Tablet) 650 mg PO Q6H PRN PRN Reason: Fever >100.4 or pain 1-3 Stop: 06/06/25 23:13 Hydrocodone Bitart/Acetaminophen (Hydrocodone/Apap 10/325 Tab) 1 tab PO Q4H PRN PRN Reason: PAIN SCALE 4-6 (Moderate Stop: 05/12/25 23:18 Enoxaparin Sodium (Enoxaparin Sod Inj 40 Mg/0.4 Ml Syringe) 40 mg SC QDAY [facility] Stop: 05/22/25 08:59 Levothyroxine Sodium (Levothyroxine Sodium 100 Mcg Tablet) 100 mcg PO ACBR [facility] Stop: 06/07/25 05:59 Morphine Sulfate (Morphine Sulf Inj 10 Mg/Ml Vial) 2 mg IVP Q2H PRN PRN Reason: BREAKTHROUGH PAIN (SEVERE) Stop: 05/12/25 23:18 Ondansetron HCl (Ondansetron Inj 2 Mg/Ml Inj 2 Ml) 4 mg IVP Q6H PRN; Protocol PRN Reason: NAUSEA OR VOMITING Stop: 06/06/25 23:13 Discontinued Medications Hydrocodone Bitart/Acetaminophen (Hydrocodone/Apap 5/325 Tablet) 1 tab PO X1 ONE Stop: 05/07/25 11:57 Last Admin: 05/07/25 13:03 Dose: 1 tab Hydrocodone Bitart/Acetaminophen (Hydrocodone/Apap 5/325 Tablet) 1 tab PO X1 ONE Stop: 05/07/25 22:19 Last Admin: 05/07/25 23:05 Dose: 1 tab Cephalexin HCl (Cephalexin 250 Mg Capsule) 500 mg PO X1 ONE Stop: 05/07/25 19:59 Last Admin: 05/07/25 21:59 Dose: 500 mg Ondansetron HCl (Ondansetron Odt 4 Mg Tabrap) 4 mg PO X1 ONE; Protocol Stop: 05/07/25 11:57 Last Admin: 05/07/25 13:02 Dose: 4 mg Assessment & Plan Plan 59F with PMH HTN, hypothyroidism, OAB, and pre-DM presenting with 2 days of severe abdominal pain and nausea, found to have a large complex adnexal mass 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 # Intractable abdominal pain with nausea Severe, constant 10/10 abdominal pain since Thursday with nausea/dry heaving. No obstruction on Gastrografin series, pancreatitis unlikely given normal lipase. Pain likely multifactorial but concerning given adnexal mass. 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 Requires Water And Fire Technician/Onc evaluation. Plan: * Water And Fire Technician consulted (Dr. Burciaga), Oncology (Dr. Blackman) consulted * Tumor markers: CA-125, CEA, CA 19-9 * Consider MRI pelvis * Follow-up with Water And Fire Technician and oncology recommendation # Asymptomatic bacteriuria UA with LE+, 13 WBC, no bacteria Patient without urinary symptoms. Plan: * No antibiotics indicated at this time * Monitor urine culture # Hypertension Stable. Plan: Continue home regimen. # Hypothyroidism Stable Plan: Continue levothyroxine. # Overactive bladder Stable Plan: Continue oxybutynin. # Pre-diabetes On GLP-1 agonist. Plan: Hold while inpatient, resume outpatient. Health Maintenance Disposition: Admit to medicine obs Diet: Carb consistent Thromboprophylaxis: Enoxaparin SQ GI prophylaxis: Not indicated Code Status: Full Code ----- Plan discussed with attending physician Dr. Deborah Vincent MD PGY-1 Internal Medicine Attending Provider Attestation/Addendum I have examined the patient, reviewed labs and imaging findings, discussed the case with the resident(s), and reviewed entered orders. I agree with the plan of care as outlined in this note, with these additional summaries/recommendations: After examination of the patient and review of the clinical data, I feel that this patient needs admission to the hospital for further treatment and evaluation. Patient is a 59-year-old female with a medical history of allergies, urinary incontinence, obesity on Ozempic, hypothyroidism, neuropathy, primary hypertension, vitamin D deficiency, and umbilical hernia status postrepair approximately 20 years ago presents to [facility] emergency department on 05/07/2025 with chief complaint of intractable abdominal pain and nausea plus vomiting. Patient and patient's sister seen at bedside. She reports over the last week she had progressively worsening intractable abdominal pain. She reports pain is 10 out of 10 in intensity at its peak. She also endorses intractable nausea with vomiting at times. When asked where the pain is located patient points to her lower abdomen/pelvic region. Patient underwent CT of abdomen pelvis which was suspicious for small bowel obstruction and small bowel series was ordered which was negative. CT also reported acute pancreatitis although lipase within normal limits and patient's abdominal pain is not consistent with pancreatitis. CT abdomen and pelvis did reveal 14 cm complex septated cystic mass in the pelvis with extensive mural solid component most consistent with cystadenocarcinoma. Transvaginal ultrasound showed large complex septated cystic mass with internal echoes measuring 12X 11X 10.3 cm. Suspect patient's symptoms are related to large cystic mass. Will consult oncology and gynecology, recommendations appreciated. Ordered tumor markers. She denies weight loss or vaginal bleeding. Start oral [place] for intractable pain and as needed IV morphine for breakthrough pain. Start Zofran for intractable nausea. Urinalysis showed 13 WBCs, leukocyte esterase positive, and no bacteria. Patient has no urinary symptoms at this time and most likely asymptomatic bacteriuria. Patient also reports she recently started Wegovy which I recommend holding for now given her GI symptoms until evaluated by PCP. Leukocytosis present which most likely is reactive in nature and will monitor for now. Repeat hematology panel in AM. Resume home antihypertensives as able. Resume home oxybutynin and levothyroxine. Admit patient to observation. Patient updated on the plan and in agreement. All questions answered to satisfaction. Please see residents note for additional details of management. Dr. Deborah MD
[2025-05-07 23:45] VITALS: PULSE 87; RESP 18; RESP 96
[2025-05-08 01:02] VITALS: BMI 31.4
--- NOTE | 2025-05-08 01:12 | PC.NURSE ---
Pt arrived to room 376 via wheelchair, oriented to room and plan of care explained. Nursing care began at this time.
[2025-05-08 01:21] VITALS: BP 110/67; PULSE 72; RESP 16; TEMP 36.6; O2SAT 98
[2025-05-08 02:10] LABS: CA 125 8.0 U/mL (<30.2); Carcinoembryonic Antigen < 0.5 ng/mL (0.0-5.0)
[2025-05-08 04:00] VITALS: BP 126/69; PULSE 72; RESP 16; TEMP 35.9; O2SAT 97
[2025-05-08 04:18] VITALS: PULSE 62; RESP 18; O2SAT 95
[2025-05-08] MEDS: LEVOTHYROXINE SODIUM 100 MCG TABLET PO (05:40)
[2025-05-08 06:12] LABS: Basophils # (Auto) 0.0 Thou/mm3 (0.0-0.2); Basophils % (Auto) 0 % (0-2.5); Eosinophils # (Auto) 0.0 Thou/mm3 (0.0-0.5); Eosinophils % (Auto) 0 % (0-10); Hematocrit 35.8 % (36.0-46.0); Hemoglobin 12.4 g/dL (12.0-16.0); Immature Granulocytes Auto 0.06 Thou/mm3 (0.00-0.00); Lymphocytes # (Auto) 1.6 Thou/mm3 (1.0-4.8); Lymphocytes % (Auto) 13 % (10-50); Mean Corpuscular HGB Conc 34.6 g/dl (31.0-37.0); Mean Corpuscular Hemoglobin 32.3 pg (25.0-35.0); Mean Corpuscular Volume 93 fL (80-100); Monocytes # (Auto) 1.3 Thou/mm3 (0.0-0.8); Monocytes % (Auto) 11 % (0-12); Neutrophils # (Auto) 9.3 Thou/mm3 (1.8-7.7); Neutrophils % (Auto) 76 % (37-80); Nucleated Red Blood Cell # 0.00 Thou/mm3 (0.00-0.00); Nucleated Red Blood Cell % 0 /100 WBC (0); Platelet Count 219 Thou/mm3 (140-440); RDW Standard Deviation 42.9 fL (36.4-46.3); Red Blood Count 3.84 Miln/mm3 (4.00-5.20); White Blood Count 12.3 Thou/mm3 (3.6-11.0)
[2025-05-08 06:32] LABS: Anion Gap 10 (7-16); BUN/Creatinine Ratio 16 Ratio (12-20); Blood Urea Nitrogen 11 mg/dL (9-23); Calcium 9.4 mg/dL (8.3-10.6); Carbon Dioxide 28.2 mMol/L (20.0-31.0); Chloride 103 mMol/L (98-107); Creatinine (Component) 0.7 mg/dL (0.6-1.3); Estimated Creatinine Clearance 81.6 mL/min (>60); Glucose 101 mg/dL (74-106); Magnesium 2.1 mg/dL (1.6-2.6); Osmolality,Calculated 280 (275-295); Potassium 3.7 mMol/L (3.4-5.1); Sodium 141 mMol/L (136-145); eGFR > 60 See Note
[2025-05-08 08:00] VITALS: BP 148/75; PULSE 61; RESP 18; TEMP 36.1; O2SAT 98
[2025-05-08] MEDS: ENOXAPARIN SOD INJ 40 MG/0.4 ML SYRINGE SC (08:10)
--- NOTE | 2025-05-08 09:16 | ESCONSULT_ITS ---
CHIEF INVESTIGATOR HPI Data of Consult Patient: new to practice Consult date: 05/08/25 Requesting Physician: Rashi Godoy MD Primary Care Provider: Yue Garcia PA-C Consult Narrative Reason for consult: pelvic mass History of present illness: 59-year-old with a history of hypertension, hypothyroidism, overactive bladder, and pre-diabetes who presented to the ED yesterday around noon reporting with two days of severe, stabbing lower abdominal pain that began Thursday night. The pain had been constant, rated as 10/10, and not relieved by rest or position. She also reported associated nausea and dry heaving but no denise emesis. She continued to pass stool and flatus, though somewhat decreased compared to baseline. She denied fever, chills, chest pain, dysuria, hematuria, vaginal bleeding, or any recent illness. She has a history of an open abdominal hernia repair over 25 years ago. She was evaluated in the ED, where labs showed mild leukocytosis (WBC 13.1) with otherwise reassuring electrolytes, renal, hepatic panel, and normal lipase. CT abdomen/pelvis showed an umbilical hernia containing small bowel without obstruction, ?early pancreatitis? not supported by labs, and a 14 cm complex septated adnexal mass. This was confirmed on transvaginal ultrasound. A Gastrografin series was initiated and the follow up abdominal film was negative for obstruction, so no further series required. She remains hemodynamically stable with benign abdominal exam. A Wildlife Photographer consult was requested by text at just before midnight 05/07/25 regarding the adnexal cyst. This morning, I met with the patient who is resting comfortably. She has had loose stools since yesterday. She denies any severe colicky abdominal pain with severe nausea which would be seen in ovarian torsion. No unintended weight loss, early satiety or increased abdominal girth. No AUTOCAD DESIGNER vaginal bleeding or discharge. CHIEF INVESTIGATOR PMH: x 2, 30 and 33 years ago Menopause early 50s No hx HRT NO breast, colon or ovarian CA in the family Pt gets regular CHIEF INVESTIGATOR care at [facility] in [place] and had a pap and mammogram within the past year, both WNL per pt. Past Medical History * Hypertension * Hypothyroidism * Overactive bladder * Pre-diabetes Past Surgical History * Umbilical hernia repair (>25 years ago) PT Unsure whether or not mesh was used * Open Cholecystectomy with a large vertical scar * Shoulder surgery * Trigger finger surgery * Carpal tunnel surgery Medications * Levothyroxine 100 mcg daily (recent dose adjustment) * Benazepril 40 Mg * Oxybutynin 10 mg daily * Weekly GLP-1 agonist injection (last dose Thursday) Allergies * NKDA Family History * PGM and M Uncle with cancer of unclear origin.(no known gynecologic or GI malignancy reported). Social History * Lives with family, primary caregiver for grandchildren. * Denies tobacco, alcohol, and recreational drug use. cc:: cc: Rashi Godoy MD Review of Systems Review of Systems Narrative Review of Systems: No AUTOCAD DESIGNER VB, No colicky pain, no early satiety, increased abdominal girth or weight loss. Meds Home Medications and Allergies Home Medications ?Medication ?Instructions ?Recorded ?Confirmed ?Type Levothyroxine * (SYNTHROID *) 100 mcg PO ACBR #0 tabs 01/07/16 05/08/25 History Oxybutynin Chloride XL * (DITROPAN 10 mg PO DAILY ##0 01/07/16 05/08/25 History XL *) benazepril 20 mg tablet (Lotensin) 40 mg PO QDAY #0 ta bs 01/07/16 05/08/25 History cetirizine 10 mg tablet (24Hour 10 mg PO QDAY 05/08/25 05/08/25 History Allergy) cholecalciferol (vitamin D3) 50 50 mcg PO DAILY 05/08/25 History mcg (2,000 unit) capsule semaglutide (weight loss) 0.5 1 mg subcut Q7D 05/08/25 05/08/25 History mg/0.5 mL subcutaneous pen injector (Wegovy) Allergies Allergy/AdvReac Type Severity Reaction Status Date / Time No Known Allergies Allergy Verified 05/07/25 10:59 Exam - CHIEF INVESTIGATOR Vital Signs Temp Pulse Resp BP Pulse Ox O2 Del Method 97.0 F 61 18 148/75 H 98 Room Air 05/08/25 08:00 05/08/25 08:00 05/08/25 08:00 05/08/25 08:00 05/08/25 08:00 05/08/25 04:00 Narrative Exam The patient is a pleasant 59 year old female who appears her stated age. She speaks Engligh. Her sister is present at bedside. The patient is alert and orientated x 3 in NAD. She is an excellent historian Constitutional Constitutional: no acute distress and average body habitus Routine Abdominal Exam Abdominal: Present soft, tenderness (mild, diffuse tenderness in midline), distended (slightly) and surgical scars (Two large vertical scars. One above umbilicus from open cholecystectomy, one below umbilicus from an open hernia repair) CHIEF INVESTIGATOR - Results Labs 05/08/25 05:14 05/08/25 05:14 Labs: Short CBC 05/07/25 05/08/25 Range/Units 12:06 05:14 WBC 13.1 H 12.3 H (3.6-11.0) Thou/mm3 Hgb 13.7 12.4 (12.0-16.0) g/dL Hct 41.5 35.8 L (36.0-46.0) % Plt Count 265 219 D (140-440) Thou/mm3 BMP 05/07/25 05/08/25 12:06 05:14 Sodium 141 141 Potassium 4.4 3.7 D Chloride 104 103 Carbon Dioxide 27.4 28.2 BUN 10 11 Creatinine 0.7 0.7 Glucose 99 101 Calcium 10.4 9.4 Liver Function 05/07/25 Range/Units 12:06 Total Bilirubin 0.8 (0.3-1.2) mg/dL AST 22 (0-34) U/L ALT 10 (10-49) U/L Alkaline Phosphatase 64 (46-116) U/L Albumin 4.7 (3.4-4.8) gm/dL Urine 05/07/25 Range/Units 12:10 Urine Color Yellow (Lt Yel-Yel) Urine Clarity Clear (Clear/Hazy) Urine pH 7.0 (5.0-7.0) Ur Specific [place] 1.022 (1.001-1.035) Urine Protein Negative (Neg - Trace) Urine Glucose (UA) Negative (Negative) Imaging and Cardiology Abdominal x-ray: Status: image reviewed by me US - abdomen: Status: image reviewed by me Additional comments: US report and films reviewed Uterus 5.9 cm, stripe not seen well, R ovary not seen. No mention of L ovary. Septated mass 12x 11 x 10 cm. Right adnexal area. Upon rviewing the films it appears to be a simple cyst with at most a single septation. Assessment and Plan Assessment and plan (1) Abdominal pain: Status: Acute Assessment and plan: Likely a partial SBO due to possible adhesions from prior surgeries. Managed medically by primary team. A general surgery consult may be warrented if the patient worsens. (2) Adnexal mass: Status: Acute Assessment and plan: No signs of ovarian CA or torsion. I doubt the andexal mass had anything to do with her pain on admission and likely has been present for some time. Large ovarian cysts (12 x 10 cm) rarely torse as they are too big. Her CA 125 is 8 so not likely an ovarian CA and so signs of lymphadenopathy or ascites on CT scan. The radiologist suggested an MRI which would not be helpful at all from a Gynecology perspective. The mass looks mostly simple to me. It actually could be a bunch of loculated adhesions from prior surgeries with peritoneal fluid present. Either way, she will need some type of laparoscopy or laparotomy with possible unilateral oophorectomy to evaluate this mass. This can be scheduled as an out patient. Pt sees a can carrier provider at [facility] in [facility], likely a PA or DELIVERY AND INSTALLATION SUBCONTRACTOR who cannot so surgery as there are almost no gynecologists practicing at [facility] She can follow up in the [facility] OB clinic in the [facility] for surgery as an out patient. I warned her this might not be an easy surgery due to her two large abdominal vertical scars and the possiblity of mesh in her hernia surgery, which can cause bowel adhesions. I might schedule the case with general surgery on stand by. Total time at bedside with exam, review of patient history and discussion 30 min, with review of notes, labs, films and documentation another 20 min. Total time spent on consult: 50 min. The can carrier service will sign off now. Our office # is and [facility] on [place] second floor Additional Assessment & Plan Additional Plan: Pt to call and schedule follow up with ilir Clifton MA at the OB clinic.
[2025-05-08 09:25] LABS: Glucose Estimated Average 100 mg/dL (80-131); Hemoglobin A1C 5.1 % Hgb (4.8-6.0)
--- NOTE | 2025-05-08 09:59 | PC.SS ---
Patient Luz Barton is a 59 Year old female admitted for Intactabal ABD. SS met with patient at bedside to discuss discharge plan. Patient reports she lives at home with family. Patient reports her daughter, Bita Egan is her surrogate decision maker, [phone]. Patient reports she does not utilize any source of DME to assist with ambulation. Patient is able to complete all ADL's independently. Patient does not utilize any source of DME to assist with ambulation. At time of discharge patient's wishes are to return back home, family will provide transportation. No further needs identified. Next of kin: Daughter: Bita Egan Discharge plan: Home
[2025-05-08 12:00] VITALS: BP 124/63; PULSE 68; RESP 18; TEMP 36.3; O2SAT 97
--- NOTE | 2025-05-08 12:19 | PD.ONCCONS ---
HPI Data of Consult Consult date: 05/08/25 Requesting Physician: Rashi Godoy MD Primary Care Provider: Yue Garcia PA-C Consult Narrative Reason for consult: pelvic mass History of present illness: Patient is a 59-year-old lady admitted with abdominal pain with CT showing 14 cm complex septated cystic mass in the pelvis with extensive mural solid component consistent with cystoscopy adenocarcinoma. Transvaginal ultrasound revealed large complex septated cystic mass with internal echoes 12 x 11 x 10.3 cm. Small bowel x-ray 05/07/2025 mildly contrast distended small bowel loops, and abdominal x-ray negative for small bowel obstruction. Labs showed elevation of WBC 13.1, with unremarkable CMP, CEA less than 0.5 CA125 8.0 CA 19-9 is [address] Burciaga [employer], who felt that adnexal mass did not have anything to do with pain admission, and that abdominal pain likely due to partial SBO due to possible adhesions from prior surgeries. Was given information regarding follow-up at [employer] [facility] for scheduling of laparoscopy or laparotomy with possible unilateral oophorectomy to evaluate this mass. cc:: cc: Rashi Godoy MD Past Medical History Family History OTHER FAMILY HX: No family history of INSTRUCTIONAL PARAPROFESSIONAL malignancy Social History SOCIAL: This with family denies smoking drinking originally from [place] Past Medical History Comments PMH COMMENT: Hypertension hypothyroidism overactive bladder prediabetes cholecystectomy inguinal hernia repair shoulder surgery Meds Home Medications and Allergies Home Medications ?Medication ?Instructions ?Recorded ?Confirmed ?Type Levothyroxine * (SYNTHROID *) 100 mcg PO ACBR #0 tabs 01/07/16 05/08/25 History Oxybutynin Chloride XL * (DITROPAN 10 mg PO DAILY ##0 01/07/16 05/08/25 History XL *) benazepril 20 mg tablet (Lotensin) 40 mg PO QDAY #0 tabs 01/07/16 05/08/25 History cetirizine 10 mg tablet (24Hour 10 mg PO QDAY 05/08/25 05/08/25 History Allergy) cholecalciferol (vitamin D3) 50 50 mcg PO DAILY 05/08/25 05/08/25 History mcg (2,000 unit) capsule Allergies Allergy/AdvReac Type Severity Reaction Status Date / Time No Known Allergies Allergy Verified 05/07/25 10:59 Exam Vital Signs Temp Pulse Resp BP Pulse Ox O2 Del Method 97.0 F 61 18 148/75 H 98 Room Air 05/08/25 08:00 05/08/25 08:00 05/08/25 08:00 05/08/25 08:00 05/08/25 08:00 05/08/25 04:00 Narrative Exam Appears comfortable answering questions appropriately Results Labs 05/08/25 05:14 05/08/25 05:14 Labs: Short CBC 05/07/25 05/08/25 Range/Units 12:06 05:14 WBC 13.1 H 12.3 H (3.6-11.0) Thou/mm3 Hgb 13.7 12.4 (12.0-16.0) g/dL Hct 41.5 35.8 L (36.0-46.0) % Plt Count 265 219 D (140-440) Thou/mm3 BMP 05/07/25 05/08/25 12:06 05:14 Sodium 141 141 Potassium 4.4 3.7 D Chloride 104 103 Carbon Dioxide 27.4 28.2 BUN 10 11 Creatinine 0.7 0.7 Glucose 99 101 Calcium 10.4 9.4 Liver Function 05/07/25 Range/Units 12:06 Total Bilirubin 0.8 (0.3-1.2) mg/dL AST 22 (0-34) U/L ALT 10 (10-49) U/L Alkaline Phosphatase 64 (46-116) U/L Albumin 4.7 (3.4-4.8) gm/dL Urine 05/07/25 Range/Units 12:10 Urine Color Yellow (Lt Yel-Yel) Urine Clarity Clear (Clear/Hazy) Urine pH 7.0 (5.0-7.0) Ur Specific [place] 1.022 (1.001-1.035) Urine Protein Negative (Neg - Trace) Urine Glucose (UA) Negative (Negative) Assessment and Plan Additional Assessment & Plan Additional Plan: 1. Admitted with abdominal pelvic pain with imaging studies revealing large right adnexal mass. 2. CEA CA125 remains low; CA 19?[address] Burciaga [employer] has given patient follow-up information @ [facility] OB clinic for likely laparoscopy laparotomy. 3. I will see her as needed in the future.
--- NOTE | 2025-05-08 13:44 | CHAP ---
Patient was visited by a Spiritual Care Volunteer on 05/08/2025 between 0900 and 0955 and received comfort, encouragement and/or prayer.
--- NOTE | 2025-05-08 15:37 | ESDS_ITS ---
<Statement entered by Rashi Godoy MD - 05/12/25 15:08> I reviewed above note and agree with findings and plans. I have also personally examined the patient with medicine team and went over assessment and plan with medical team including record label internship and resident physician. <Statement entered by Ronald Egan MD - 05/08/25 16:23> Patient was examined and case was reviewed with team including attending physician. Note reviewed, I agree with most of its contents and agree with the patient's care. Ronald Egan MD PGY-2 Planned Discharge Date 05/08/25 DS: Providers Provider Date of admission: 05/07/25 23:17 Primary care physician: Yue Garcia PA-C Admitting Provider: Lamonte Cabrera MD Attending Provider on Admission: Rashi Godoy MD Consults: 05/07/25 23:16 Consult to Gynecology Routine Comment: Consulting Provider: Patrica ([facility])Giulia 05/07/25 23:17 Consult to Oncology Routine Comment: Consulting Provider: Juan Antonio Blackman 05/08/25 08:00 Referral [place] Routine Comment: Attending Provider on DC: Rashi Godoy MD Discharging Provider: Bonifacio Espinoza DO Anticipated date of discharge: 05/08/25 DS: Diagnosis Problem List Completed Was Problem List Reviewed/Reconciled?: Yes Hospital Course Hospital Course Hospital course: 59-year-old woman with PMH of hypertension, hypothyroidism, and OAB presented with severe lower abdominal pain and nausea. Initial labs showed mild leukocytosis with otherwise unremarkable CMP and normal lipase. 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 Transvaginal ultrasound confirmed a large complex cystic adnexal mass. Small bowel series and abdominal films were negative for obstruction. She was evaluated by DIELECTRIC MACHINE OPERATOR, who felt the mass was unlikely the acute pain source. Pain and nausea were managed with IV fluids, antiemetics, and analgesics. Given stability, benign abdominal exam, and lack of obstruction, no surgical intervention was required during admission. Patient is on Wegovy, which can be contributing to symptoms. Patient was provided follow-up instructions with [facility] DIELECTRIC MACHINE OPERATOR clinic for outpatient laparoscopy/laparotomy with possible unilateral oophorectomy. Leukocytosis was monitored and felt to be reactive. Hypertension and hypothyroidism were managed on home regimen. Patient is medically and physically stable for discharge. Diagnosis: #Abdominal pain #Large complex adnexal mass #Leukocytosis #Asymptomatic bacteriuria #Hypertension #Hypothyroidism #Overactive bladder #History of umbilical hernia repair Discharge Plan: Follow up with primary care physician within 1 week of discharge. Follow up with OBGYN with regards to your adnexal mass which requires outpatient requirement. Please we stopped your wegovy as this is likely causing your symptoms. Please speak to your PCP in regards to continuing this medication as you are not pre- diabetic anymore. Should your symptoms recur or worsen patient is instructed to return to the ED. Case discussed with my senior resident Dr. Jaxon Egan and my attending . Bonifacio Espinoza DO PGY 1 Status at Discharge Overall status at discharge: patient is progressing back to baseline Time Spent with Patient Time attestation: Total time spent providing and/or coordinating discharge services: Time spent: Greater than 30 minutes Exam Vital Signs Temp Pulse Resp BP Pulse Ox O2 Del Method 97.3 F 68 18 124/63 97 Room Air 05/08/25 12:00 05/08/25 12:00 05/08/25 12:00 05/08/25 12:00 05/08/25 12:05/08/25 04:00 Narrative Exam General: awake and alert. no acute distress. HEENT: No scleral icterus. Cardiac: Regular, no murmurs. Lungs: Clear to auscultation bilaterally. Abdomen: Soft with focal tenderness to lower abdomen/pelvis. Guarding present. No rebound and no peritoneal signs. : No CVA tenderness. Extremities: No edema. Neuro: Alert and oriented, non-focal. Skin: No rashes, no jaundice. Discharge Plan Plan Patient Disposition: HOME (Self Care) Patient condition on transfer: Stable Care Plan Goals: Follow up with primary care physician within 1 week of idischarge Follow up with OBGYN with regards to your adnexal mass which requires outpatient requirement Please we stopped your wegovy as this is likely causing your symptoms. Please speak to your PCP in regards to continuing this medication as you are not pre- diabetic anymore. Should your symptoms recur or worsen patient is instructed to return to the ED. Prescriptions/Referrals Prescriptions/Med Rec: Continued benazepril [Lotensin] 20 MG tablet 40 mg PO QDAY Qty: 0 Levothyroxine * (SYNTHROID *) 100 MCG tablet 100 mcg PO ACBR Qty: 0 Oxybutynin Chloride XL * (DITROPAN XL *) 10 MG TABLET, EXTENDED RELEASE 10 mg PO DAILY Qty: 0 cetirizine [24Hour Allergy] 10 mg tablet 10 mg PO QDAY cholecalciferol (vitamin D3) 50 mcg (2,000 unit) capsule 50 mcg PO DAILY Patient Comments: TAKE 1 CAPSULE BY MOUTH EVERY DAY Discontinued Wegovy 0.5 mg/0.5 mL pen injector 1 mg SUBCUT Q7D Patient Comments: INJECT 0.5ML SUBCUTANEOUSLY ONCE A WEEK-saturdays Referrals: Yue Garcia PA-C [Primary Care Provider] - Patient/Caregiver Discharge Instructions Print Language: Malay Stand Alone Forms: Whit Award Info., Patient Portal Info Letter, Work/Release Restrictions Discharge Order Discharge Orders: Discharge (Routine); Ordered 05/08/25 Ordered By: Ronald Egan Quality Discharge Quality Measures none
[2025-05-11 06:34] LABS: CA 19-9 Antigen* <3 U/mL (<34)
== END 2025-05-08 14:00 | disposition home or self-care (01) ==
LOC: SERX 23:08 → SERHOLD 23:54 → S3SX 05-08 08:07 → SERHOLD 05-08 11:58 → S3SX 05-08 11:58
PROVIDERS: Physician Assistant Medical; Admitting Provider Student in an Organized Health Care Education/Training Program; Emergency Provider Emergency Medicine; PCP Physician Assistant; Visit Provider Internal Medicine
DX: R10.30 Lower abdominal pain, unspecified (principal); E03.9 Hypothyroidism, unspecified; I10 Essential (primary) hypertension; R82.71 Bacteriuria; N32.81 Overactive bladder; N83.9 Noninflammatory disorder of ovary, fallopian tube and broad ligament, unspecified; D72.829 Elevated white blood cell count, unspecified; K63.89 Other specified diseases of intestine
CPT/HCPCS: 36415; 74018; 74177; 74250; 76830; 80048; 80053; 81001; 82378; 83036; 83605; 83690; 83735; 85025; 86301; 86304; 87086; 96372; 99284; A4649; G0378; J1650; Q0162; Q9967; A9270

== ENCOUNTER 2025-06-12 09:00 | Outpatient (RCR) | payer MEDICAID, SELFPAY ==
--- NOTE | 2025-06-06 09:12 | PTNOTE_ITS ---
PT OP Initial Eval Patient Information Outpatient Physical Therapy Treatment Date: 06/06/25 Visit Reasons: Low back pain Medical Diagnosis: M54.50 Treatment Dx #1: LBP with radiculopathy Start of Care: 06/06/25 Date of Onset: 2019 Smoking Status Smoking Status: Never smoker Initial Assessment Subjective: Pt is 59 yr old female who reports LBP that runs into the glutes. Increased pain with bending, sitting and walking to the mailbox which is about 80' and HH chores. PMH: HTN, hypothyroidism Imaging: Xray of L/S in EMR Moderate disc narrowing L3-L4, L4-L5, advanced disc narrowing L5-S1, progressed compared with the prior study, Anterolisthesis L5 on S1 10 mm in extension 10 mm in flexion?? Pt goal: to get rid of the LBP Objective: Trunk ArOM: ? B SB 50% of normal with pain ? Extension: 10% with pain around L4-5, L5-S1 ? Flexion: 14 from floor with LBP ? B rotation: 60% with pain ? TTP: moderate paraspinals L5-S1 ? Neuro: B SLR: positive Assessment: Pt presents with trunk flexion and extension sensitivity and overlying myofascial pain ? and TTP around L5-S1 consistent with DDD, anterolisthesis L5-S1 with radiculopathy. Pt requires skilled therapy in order to decrease pain and improve sitting/standing tolerance and has poor rehab potential. PT recommends further diagnostic imaging of L/S such as MRI.Eval followed by HEP printout. Short Term and Hazmat Technician Goals ? 1. Ind with HEP ? 2. Improved sitting/standing tolerance to 30 minutes with <=4/10 LBP ? 3. Decreased lower paraspinal TTP from mod to min 4. Improved HH chore tolerance to at least 30 minutes with <=3/10 LBP and no ?increase in LE ssx Treatment Plan ? 1. Manual therapy ? 2. Therex ? 3. Modalities as indicated, moist heat, ice, estim, mechanical traction Frequency and Duration: 1-2x a week for 3 trial visits, if progressing continue to 8, if not Reassess Certification Dates: 06/06/25 to 08/05/25 Procedure Charges OP PT Eval Mod Complex 30 minutes: Yes
--- NOTE | 2025-06-12 11:06 | PT.ODAYNRPT ---
PT Outpatient Daily Note OP Daily Note Outpatient Physical Therapy Treatment Date: 06/12/25 Visit Reasons: Low back pain Subjective: Pt states she is doing well with no LBP. Explains pain increases with prolonged periods of standing, walking, and sitting. Objective: See F/S for therex performed Assessment: Demo's good mechanics with PPT and ability to hold while performing LE exercises. Appropriate fatigue post therex; pt reports minimal soreness. Plan: Continue with POC Length of Time (minutes) of Treatment: 30 Minutes Procedure Charges Therapeutic Exercise 30 minutes: Yes
== END 2025-06-13 23:59 | disposition home or self-care (01) ==
LOC: CPTX 09:00
PROVIDERS: PCP Psychiatry & Neurology Pain Medicine; Referring Provider Psychiatry & Neurology Pain Medicine; Visit Provider Psychiatry & Neurology Pain Medicine
DX: M54.16 Radiculopathy, lumbar region (principal); I10 Essential (primary) hypertension
CPT/HCPCS: 97110; 97162

== ENCOUNTER 2025-07-03 09:00 | Outpatient (RCR) | payer MEDICAID, SELFPAY ==
--- NOTE | 2025-06-14 10:48 | PT.ODAYNRPT ---
PT Outpatient Daily Note OP Daily Note Outpatient Physical Therapy Treatment Date: 06/14/25 Visit Reasons: Low back pain Subjective: Pt c/o minimal LB and R LE pain, states its her regular amount of pain. Objective: See F/S for therex performed Assessment: Improved ability to maintain PPT with LE exercises; no increase in pain and min vc's required to avoid holding breath. Advised to continue with LE stretches at home, pt states she will and was able to independently demo stretches with no corrective cues required. Plan: Continue with POC Length of Time (minutes) of Treatment: 30 Minutes Procedure Charges Therapeutic Exercise 30 minutes: Yes
--- NOTE | 2025-06-19 10:25 | PT.ODAYNRPT ---
PT Outpatient Daily Note OP Daily Note Outpatient Physical Therapy Treatment Date: 06/19/25 Visit Reasons: Low back pain Subjective: Pt c/o minimal LB and R LE pain, feels about the same as last time Objective: See F/S for therex Assessment: Slow progress with goals due to continued LBP Plan: Continue with POC Length of Time (minutes) of Treatment: 30 Minutes Procedure Charges Therapeutic Exercise 30 minutes: Yes
--- NOTE | 2025-06-22 10:30 | PT.ODAYNRPT ---
PT Outpatient Daily Note OP Daily Note Outpatient Physical Therapy Treatment Date: 06/22/25 Visit Reasons: Low back pain Subjective: Pt c/o minimal LB and R LE pain, feels about the same as last time Objective: See F/S for therex Assessment: Slow progress with goals due to continued LBP Plan: Continue with POC Length of Time (minutes) of Treatment: 30 Minutes Procedure Charges Therapeutic Exercise 30 minutes: Yes
--- NOTE | 2025-06-29 09:40 | PT.ODAYNRPT ---
PT Outpatient Daily Note OP Daily Note Outpatient Physical Therapy Treatment Date: 06/29/25 Visit Reasons: Low back pain Subjective: No new complaints or concerns. Objective: Please see flow sheet for ther ex list. Assessment: Pt tolerates interventions with no complaints. Plan: Continue with poC. Length of Time (minutes) of Treatment: 30 Minutes Procedure Charges Therapeutic Exercise 30 minutes: Yes
--- NOTE | 2025-07-03 13:00 | PT.ODS1RPT ---
PT OP Progress/Discharge Note Date of Service: 07/03/25 Progress Note/DC Note Progress Note/Discharge Note: DC Note Patient Information Visit Reasons: Low back pain Service Continue Service or Discharge: Discharge Discharge Date: 07/03/25 Status Subjective: Continued LBP that feels about the same as before therapy Objective: Trunk AROM: FB: 15 from floor Extension: 10% of full with pain TTPL moderate of L5-S1 paraspinals Assessment: Pt has attended the eval and 6 Rx sessions with limited progress with therapy goals due to continued high level LBP consistent with X-ray findings.of DDD and anterolisthesis. Pt hasn't met set therapy goals. PT recommends orthopedic evaluation. Thank you for your referals. Plan: D/C Procedure Charges Therapeutic Exercise 30 minutes: Yes
== END 2025-07-14 23:59 | disposition home or self-care (01) ==
LOC: CPTX 09:00
PROVIDERS: PCP Psychiatry & Neurology Pain Medicine; Referring Provider Psychiatry & Neurology Pain Medicine; Visit Provider Psychiatry & Neurology Pain Medicine
DX: M54.16 Radiculopathy, lumbar region (principal); M48.061 Spinal stenosis, lumbar region without neurogenic claudication
CPT/HCPCS: 97110

== ENCOUNTER 2025-07-04 11:14 | Outpatient (AMB) | payer MEDICAID, SELFPAY ==
--- NOTE | 2025-07-04 11:37 | AMB.GYNCLNOT ---
Allergies/Home Meds Allergies & Medications Allergies No Known Allergies Allergy (Verified 09/05/25 09:11) Medication Reconciliation Levothyroxine * (SYNTHROID *) 100 mcg PO ACBR #0 tabs 01/07/16 [History Confirmed 09/05/25] Oxybutynin Chloride XL * (DITROPAN XL *) 10 mg PO DAILY ##0 01/07/16 [History Confirmed 09/05/25] benazepril 20 mg tablet (Lotensin) 40 mg PO QDAY #0 tabs 01/07/16 [History Confirmed 09/05/25] cetirizine 10 mg tablet (24Hour Allergy) 10 mg PO QDAY 05/08/25 [History Confirmed 09/05/25] cholecalciferol (vitamin D3) 50 mcg (2,000 unit) capsule 50 mcg PO DAILY 05/08/25 [History Confirmed 09/05/25] Intake Visit Data Collection New Patient or Established: Established Patient (seen at [facility] within 3 years) Reason for Visit:: CLINICAL AUDITOR Seen by Clinical Staff ONLY (RN/MA): No Router Setter Required: No Do You Feel Safe at Home: Yes Authorities Contacted: N/A PCP or OBGYN visit in last 3 months: Yes Date of Last PCP or OBGYN visit: 05/08/25 Hx Now: No Are you currently on any form of Control: No Pain Present Currently: No Pain Scale Used: [place]/Numerical Pain scale:: 0 Smoking Status Smoking Status: Never smoker Immunizations Flu Vaccine in the Last 12 Months: No Flu Vaccine Exclusion Criteria: No Exclusion Criteria Inbound Ingredient Logistics Specialist history Inbound Ingredient Logistics Specialist History Menstrual regularity: regular Flow: normal Monthly: No Menopausal: No Currently sexually active: No CLINICAL AUDITOR: Past Medical History Past Medical History: No Hx Neurological Disorders, Yes Hx Hypothyroidism, Yes Hx Cardiac Disorders, Yes Hx Hypertension, No Hx Cancer, No Hx Blood Disorders, Yes Hx Gastrointestinal Disorders, No Hx Renal Disease, No Hx Diabetes Mellitus Type 1, Yes Hx Diabetes Mellitus Type 2, No Hx Tubal Ligation and No Hx Hysterectomy Questionnaires Covid-19 Vaccine Questionnaire Has patient been vacinated for Covid-19 Have you been vacinated for Covid-19: Yes PHQ-9 PHQ-2 Over the last 2 weeks, how often have you been bothered by any of the following problems? 1. Little interest or pleasure in doing things: not at all 2. Feeling down, depressed, or hopeless: not at all Total score: 0 PHQ-9 3. Trouble falling or staying asleep, or sleeping too much: Not at all 4. Feeling tired or having little energy: Not at all 5. Poor appetite or overeating: Not at all 6. Feeling bad about yourself - or that you are a failure or have let yourself or your family down: Not at all 7. Trouble concentrating on things, such as reading the newspaper or watching television: Not at all 8. Moving or speaking so slowly that other people could have noticed? - Or the opposite - being so fidgety or restless that you have been moving around a lot more than usual: not at all 9. Thoughts that you would be better off or of hurting yourself in some way: Not at all Total score: 0 If you checked off any problems, how difficult have these problems made it for you to do your work, take care of things at home, or get along with other people?: not difficult at all Source: Developed by Drs. Deric Mata, Diana Anguiano, Doug Maxwell and colleagues, with an educational shilpa from [employer]. Depression screen completed yes Social History Living Situation History Marital Status: Single Lives With: Family Housing: House Tobacco History Smoking Status: Never smoker Alcohol History Alcohol Intake: Never Domestic Abuse History Do You Feel Safe at Home: Yes History of Present Illness HPI Narrative Consultation for pelvic mass Luz Barton is a 60-year-old postmenopausal female presenting for consultation regarding an incidental pelvic mass. The patient was referred from [facility] after imaging revealed a 14-centimeter septated adnexal mass concerning for cystadenocarcinoma. The mass was discovered incidentally during evaluation in the emergency room in April 2025, where she underwent CT scan, ultrasound, and x-rays. The patient has a history of hypertension treated with benazepril, hypothyroidism managed with 100 mcg levothyroxine, and overactive bladder treated with oxybutynin. She also takes vitamin D and a multivitamin. Medical History: - Emergency room visit in April 2025 - Hypertension - Hypothyroidism - Overactive bladder Medications: - Benazepril for hypertension - Levothyroxine 100 mcg for hypothyroidism - Oxybutynin for overactive bladder - Vitamin D - Multivitamin Diagnostic Test Results and Labs: - CT scan of abdomen and pelvis (05-07-2025): Early acute pancreatitis. Umbilical hernia containing small bowel, suspicious for early incarceration of small bowel. 14-centimeter complex septated cystic mass in the pelvis with extensive mural solid component consistent with cystadenocarcinoma. - Abdominal X-ray (05-07-2025): Negative for bowel obstruction - Transvaginal ultrasound: Large complex septated cystic mass with internal echoes, 12 by 11 by 10 centimeters - Small bowel series: Mildly contrasted standard small bowel loops - CA-125: 8.0 - CEA: <0.5 - CA 19-9: <3 Exam General General Appearance: alert, in no apparent distress and healthy appearing Head Head exam: atraumatic Neck Neck exam: Present normal inspection and trachea midline Chest Chest inspection: Present normal inspection and symmetric chest wall rise External exam: Present normal external exam; Absent tenderness Neuro Neurological exam: Present oriented X3 Psych Psychiatric exam: Present normal affect and normal mood Office Procedures [facility] LOC & Office Proc's Nursing/Assessment Patient Status: Established Patient [facility] Nursing Assessment: Medication Reconciliation, Update PMH in EMR and Vital Signs OB Clinic Coordination of Care: Consent,records obtained, informed consent, Education Simp Pt/Fam, Lab and Imaging orders, Results/Orders obtained and Staff clarify orders Established Patient Charge Established Patient Point Assignment: 80 Established Patient Point Charge: EP Level 3 (80-115) Assessment & Plan Diagnosis / Problem List (1) Adnexal mass: Status: Acute Plan Complex adnexal mass Assessment: Patient has a 14-centimeter complex septated cystic mass in the pelvis with extensive mural solid component identified on CT scan from 05/07/2025, initially concerning for cystadenocarcinoma. Transvaginal ultrasound confirmed a large complex septated cystic mass with internal echoes measuring 12 by 11 by 10 centimeters. Tumor markers including CA-125 (8.0), CEA (<0.5), and CA 19-9 (<3) are all within normal limits, indicating low likelihood of malignancy. The mass appears to be originating from one of the ovaries and does not currently appear malignant based on negative tumor markers, though there remains future risk of malignant transformation given the size. Plan: - Surgical removal of adnexal mass via laparotomy with incision smaller than - Submit insurance approval request (takes approximately 15 days) - Schedule surgery once insurance approval obtained - Patient will require one night hospital stay - Three-week recovery period with lifting restrictions - Obtain medical clearance from [facility] prior to surgery including potential EKG and chest X-ray - Patient to schedule appointment at [facility] and request medical clearance for surgery under anesthesia - Office will contact patient once insurance approval received to schedule surgery date Hypertension Assessment: Patient has hypertension currently managed with benazepril. Plan: - Continue benazepril Hypothyroidism Assessment: Patient has hypothyroidism currently managed with levothyroxine. Plan: - Continue levothyroxine 100 mcg Overactive bladder Assessment: Patient has overactive bladder currently managed with oxybutynin. Plan: - Continue oxybutynin
== END 2025-07-04 12:10 | disposition home or self-care (01) ==
LOC: HODSOBC 11:14
PROVIDERS: PCP Psychiatry & Neurology Pain Medicine; Referring Provider Psychiatry & Neurology Pain Medicine; Supervising Provider Obstetrics & Gynecology; Visit Provider Obstetrics & Gynecology
DX: N83.8 Other noninflammatory disorders of ovary, fallopian tube and broad ligament (principal); N32.81 Overactive bladder; E03.9 Hypothyroidism, unspecified; I10 Essential (primary) hypertension; Z78.0 Asymptomatic menopausal state; Z79.890 Hormone replacement therapy; Z79.899 Other long term (current) drug therapy
CPT/HCPCS: 99213; G0463

== ENCOUNTER 2025-09-05 09:01 | Outpatient (AMB) | payer MEDICAID, SELFPAY ==
[2025-09-05 09:10] VITALS: BP 159/92; PULSE 65; RESP 18; TEMP 36.3; O2SAT 99; BMI 30.5
--- NOTE | 2025-09-05 09:10 | PD.ORTHCLVIS ---
Vital signs 09/05/25 09:10 Height 1.57 m Height Method Stated Weight 75.296 kg Weight Measurement Method Standing Scale BMI 30.5 BP 159/92 H Blood Pressure Source Automatic Cuff Blood Pressure Location Left Upper Arm Position Sitting Respiration 18 Pulse 65 Pulse Source Monitor Temp 97.4 F Temp Source Temporal Artery Scan Pulse Oximetry (%) 99 Oxygen Delivery Method Room Air Med/Allergies Allergies & Medications Allergies No Known Allergies Allergy (Verified 09/05/25 09:11) Medication Reconciliation Levothyroxine * (SYNTHROID *) 100 mcg PO ACBR #0 tabs 01/07/16 [History Confirmed 09/05/25] Oxybutynin Chloride XL * (DITROPAN XL *) 10 mg PO DAILY ##0 01/07/16 [History Confirmed 09/05/25] benazepril 20 mg tablet (Lotensin) 40 mg PO QDAY #0 tabs 01/07/16 [History Confirmed 09/05/25] cetirizine 10 mg tablet (24Hour Allergy) 10 mg PO QDAY 05/08/25 [History Confirmed 09/05/25] cholecalciferol (vitamin D3) 50 mcg (2,000 unit) capsule 50 mcg PO DAILY 05/08/25 [History Confirmed 09/05/25] Exam Exam Breathing is nonlabored. Patient has a normal mood and affect. Bilateral extremities were evaluated and demonstrates sensation intact to light touch. Palpable pedal pulses are present. No significant edema is present. Bilateral hips were examined. The patient has no pain with log roll of the hips. Internal rotation to 30 degrees and external rotation to 30 degrees is painless. Negative FADIR. Left knee was examined today. The left knee is in reasonable alignment. Range of motion from 0-120 degrees. Knee is stable to varus and valgus as well as AP translation with <5mm. Patient has a negative McMurrays. There is no pain with patellofemoral compression and no crepitus noted. The knee is nontender to palpation. The right knee was also examined. The right knee is in varus alignment. Range of motion from 0-115 degrees. Knee is stable to varus and valgus as well as AP translation with <5mm. Patient has a negative McMurrays. There is no pain with patellofemoral compression and no crepitus noted. The knee is tender to palpation medially. X-rays demonstrate complete joint space obliteration medially with sclerosis and osteophytes. This is of the right knee from [place] [facility] Assessment and Plan Problem List (1) Arthritis of knee, right: Status: Acute Plan Patient is a 60-year-old female with right knee pain and right knee arthritis. She has significant arthritis medially. She would like a coritsone injection medially. The last injection has worked for several months Recommend knee cortisone injection as patient would like to proceed with conservative treatment at this time. The risks and benefits of the procedure were reviewed with the patient and patient gave verbal consent to continue with the procedure. Procedure: performed by Dr. Diaz Using sterile technique the Right knee was thoroughly prepped with alcohol, and approximately 1 cc of Depo-Medrol 80mg/mL and 4 cc of 0.2% ropivacaine was injected without resistance into the medial tibial femoral joint space. The patient tolerated the procedure. Office Procedures GNS Level of Care Nursing/Assessment Patient Status: Established Patient Nursing Assessment/Reassesment: Medication Reconciliation, Update PMH in EMR and Vital Signs Coordination of Care: Complex Care and Chronic Disease 1-5, Education Complex Pt/Fam, Consent,records obtained, informed consent, Results/Orders obtained and Staff clarify orders Established Patient Charge Established Patient Point Assignment: 95 Established Patient Point Charge: EP Level 3 (80-115) Surgical Proc/IM SQ injection Minor Surgical Procedure: Yes (KNEE INJECTION) Medication Given Medication Given Medication Given: Yes Documented Dose Given: 1 Route: Infiitration Medication Given Medication Given Medication Given: Yes Documented Dose Given: 4 Route: Infiitration Office Meds methylprednisolone acetate 80 mg/mL suspension for injection Performing Provider: South Diaz MD Performing Location: [facility] Administered by: South Diaz MD on 09/05/25 10:07 Dose Route Admin Location Dispensed Lot Number Expiration Date Package [facility] [place] New Account Interviewer 80 mg intra-articular 1 mL [id number] 05/13/27 [address]-9 [id number] [employer] ropivacaine (PF) 2 mg/mL (0.2 %) injection solution Performing Provider: South Diaz MD Performing Location: [facility] Administered by: South Diaz MD on 09/05/25 10:07 Dose Route Admin Location Dispensed Lot Number Expiration Date Package [facility] [place] New Account Interviewer 20 mL Infiltration 20 mL [id number] 02/10/27 7455-0414-17 [id number] ELVA ANDREWS MA Intake Visit Data Collection New Patient or Established: Established Patient (seen at [facility] within 3 years) Reason for Visit:: 4MTH R KNEE INJ Seen by Clinical Staff ONLY (RN/MA): No 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 PCP or OBGYN visit in last 3 months: Yes Hx Now: No Do You Feel Safe at Home: Yes Authorities Contacted: N/A Questionairres Past Medical History Past Medical History Have you ever been diagnosed with any of the following: Cardiology Problems Congestive Heart Failure: No Hypertension: Yes Respiratory Problems Chronic Obstructive Pulmonary Disease (COPD): No Asthma: No Smoking: No Smoking Cessation Counseling: No Smoking Exposure: No Tobacco Use: No Stomache/Intestinal Problems Hepatitis: No Gall Bladder Disease: Yes Hiatal Hernia: Yes Genital/Urinary Problems Renal Disease: No Reproductive Problems Pelvic Inflammatory Disease: No Musculoskeletal Problems Arthritis: Yes Carpal Tunnel Syndrome: Yes (TRIGGER FINGER) Fibromyalgia: Yes Endocrine Problems Diabetes Mellitus Type 1: No Diabetes Mellitus Type 2: Yes Hypothyroidism: Yes Blood Problems Sickle Cell Disease: No Other Problems Hospitalization: No Down Syndrome: No Developmental Delay: No Shingles: No Falls: No Blood Transfusions: No Anesthesia Reactions: No Organ Transplant: No MRSA: No VRSA: No Vancomycin-Resistant Enterococci: No Human Immunodeficiency Virus (HIV): No Chicken Pox: Yes Measles: No Mumps: No Rubella ([place] Measles): No Pertussis: No Clostridium Difficile: No Cancer: No Surgical History Hysterectomy: No Thyroidectomy: No Subjective Visit Visit for: follow up visit and knee (RIGHT KNEE ) Immunization / Flu Flu Vaccine in the Last 12 Months: No Flu Vaccine Exclusion Criteria: Refused by Patient History of Present Illness Chief complaint: Bilateral knee pain Luz is a pleasant 59-year-old female with right greater than left knee pain. The knee pain has been ongoing for more than a year. Pain is on the medial aspect of her knee. She would like an injection today. She reports some relief with the meloxicam. The last injection lasted for 3 months Personal History Red flag PMH: none Pain Pain level (0-10): 7 Pain duration: ON AND OFF Pain location: anterior Pain quality: sharp Pain timing: night and increases with activity Associated signs & symptoms: stiffness Ambulatory data Ambulatory device: none Walking distance (minutes): 10 Treatments Number of previous injections: 2 Improvement with previous injections: Yes Number of Physical Therapy sessions: 0 Improvement with PT: No Improvement with NSAIDS: n/a Review of Systems Review of Systems: All systems negative unless otherwise noted in HPI.
== END 2025-09-05 09:26 | disposition home or self-care (01) ==
LOC: HODSRG 09:01
PROVIDERS: Supervising Provider Orthopaedic Surgery Adult Reconstructive Orthopaedic Surgery; Visit Provider Orthopaedic Surgery Adult Reconstructive Orthopaedic Surgery
DX: M17.11 Unilateral primary osteoarthritis, right knee (principal); M25.561 Pain in right knee; M25.562 Pain in left knee; I10 Essential (primary) hypertension
CPT/HCPCS: 20610; 99213; J1010; J2795; G0463